=== PATIENT | male | born 1930 | race Caucasian/White ===

== ENCOUNTER 2018-02-05 14:59 | Outpatient (CLI) | payer MEDICARE, BC ==
--- NOTE | 2018-02-05 17:04 | MRI ---
LUMBAR SPINE MRI WITHOUT IV CONTRAST: 02/05/18 HISTORY: 87-year-old male with history of lumbar radiculopathy, right hip pain and right knee pain for 1.5 yea rs. Multiplanar and multisequence MRI examination of the lumbar spine is performed. There is severe gener alized disc desiccation changes and joint space loss with extensive hypertrophic facet arthrosis. Sli ghtly irregularly shaped T2 hyperintense, T1 hypointense 0.8 x 1.3 cm diameter focus in the posterior medial left kidney statistically a small cyst which is incompletely characterized and incompletely s een on this study. Conus medullaris region is unremarkable terminating at L1-L2. T12-L1 level shows no evidence for stenosis. At L1-L2, mild lateral recess stenosis bilaterally. At L2-3, mild bilateral lateral recess stenosis and moderate bilateral foraminal stenosis. At L3-4, mild bilateral recess stenosis and moderate to severe bilateral foraminal stenosis. At L4-5, mild bilateral recess stenosis and moderate to severe bilateral foraminal stenosis. At L5-S1, no significant central canal or lateral recess stenosis with moderate bilateral foraminal s tenosis. There are some mixed end plate changes including some very subtle type I end plate changes at L5-S1, L4-5, L3-4, and L1-2. IMPRESSION: Severe multilevel spondylosis with variable severity multilevel mostly foraminal stenosis with some b ilateral lateral recess stenosis. Some severe mixed end plate changes including some very subtle mult ilevel type I end plate changes. POS: [facility]
== END 2018-02-05 15:00 | disposition home or self-care (01) ==
LOC: TBSIIMAG 14:59
PROVIDERS: ATTEND Orthopaedic Surgery
DX: M48.00 Spinal stenosis, site unspecified (principal); M47.26 Other spondylosis with radiculopathy, lumbar region; M48.061 Spinal stenosis, lumbar region without neurogenic claudication; M99.83 Other biomechanical lesions of lumbar region
CPT/HCPCS: 72148

== ENCOUNTER 2019-03-11 14:39 | Observation (INO) | payer MEDICARE, BC ==
[~2019-03-11 14:39] MED LIST: ISOVUE-370 76%-LOCM 1 ML ONE
--- NOTE | 2019-03-11 14:59 | CT ---
Exam: CT brain PROVIDED CLINICAL HISTORY: Left leg weakness COMPARISON: 06/17/2015 FINDINGS: The ventricular system is normal in size and morphology. No evidence for intracranial hemorrhage or mass effect. The extracranial soft tissues and osseous structures demonstrate no evidence for an acute abnormality. Chronic microvascular ischemic changes are seen involving the cerebral white matte r. IMPRESSION: No evidence for intracranial hemorrhage or mass effect. Findings communicated to emergency department via telephone 2:56 PM 03/11/2019.
[2019-03-11 15:07] LABS: #Eosinphils 0.2 thou/uL (0.0-0.7); #Lymphocytes 1.4 thou/uL (1.20-3.40); #Monocytes 0.7 thou/uL (0.11-0.59); #Neutrophils 3.9 thou/uL (1.40-6.50); %Basophils 0.7 % (0.0-1.0); %Eosinophils 2.9 % (0.0-10.0); %Lymphocytes 23.1 % (21.0-51.0); %Monocytes 10.8 % (0.0-10.0); %Neutrophils 62.5 % (42.0-75.0); Hemoglobin 13.8 g/dL (14.0-18.0); Mean Corpuscular HGB CONC 34.2 g/dL (32.0-36.0); Mean Corpuscular Hemoglobin 34.9 pg (27.0-31.0); Mean Platelet Volume 7.5 fL (7.4-10.4); Platelet Count 158 thou/uL (130-400); RBC Distribution Width 11.9 % (11.5-14.5); Red Blood Cell (RBC) Count 3.96 mill/uL (4.70-6.10); White Blood Cell (WBC) Count 6.2 thou/uL (4.8-10.8)
[2019-03-11 15:13] LABS: PTT 27.9 SEC (22.9-36.1)
[2019-03-11 15:23] LABS: ALT (SGPT) 14 U/L (8-55); AST (SGOT) 21 U/L (5-34); Albumin 4.1 g/dL (3.4-4.8); Alkaline Phosphatase 76 U/L (40-150); Anion Gap 12 mmol/L (10-20); BUN (Urea Nitrogen) 29 mg/dL (8.4-25.7); Bilirubin, Total 0.6 mg/dL (0.2-1.2); CK (CPK) 134 U/L (30-200); Calc. Creatinine Clearance 0 mL/min (70-130); Calcium 9.5 mg/dL (7.8-10.44); Carbon Dioxide 27 mmol/L (23-31); Chloride 104 mmol/L (98-107); Estimated GFR-MDRD 64; Globulin 2.1 g/dL (2.4-3.5); Glucose 101 mg/dL (83-110); Potassium 4.3 mmol/L (3.5-5.1); Protein, Total 6.2 g/dL (5.8-8.1); Sodium 139 mmol/L (136-145)
--- NOTE | 2019-03-11 15:26 | RAD ---
XR Chest 1 View Portable HISTORY: Left leg weakness COMPARISON: None FINDINGS: The heart size is normal. The lungs are well expanded without focal areas of consolidation, pneumothorax or pleural effusions. IMPRESSION: No radiographic evidence of acute cardiopulmonary process.
--- NOTE | 2019-03-11 15:34 | CT ---
CT ANGIOGRAM OF THE HEAD WITH IV CONTRAST AND 3D POSTPROCESSING CT ANGIOGRAM OF THE NECK WITH IV CONTRAST AND 3D POSTPROCESSIN03/11/19 HISTORY: Level II stroke. Left leg weakness. FINDINGS/IMPRESSION: Vascular calcifications are present. There is good flow in the vertebrobasilar and carotid artery sys tems bilaterally. A dominant left vertebral artery is present. No high grade stenosis, major branch occlusion or aneurysm formation is seen. Discussed over the telephone with ER physician, Dr. Sarah Philippe at 3:15 p.m. POS: [facility]
[2019-03-11] MEDS ORDERED: Aspirin 325 MG TAB ONE (17:01)
[2019-03-11] MEDS ORDERED: Ondansetron ODT 4 MG TAB PO PRN (19:35)
[2019-03-11] MEDS ORDERED: Acetaminophen 650 MG Suppository PR PRN (19:35)
[2019-03-11] MEDS ORDERED: Acetaminophen 325 MG TAB PO PRN (19:35)
[2019-03-11] MEDS ORDERED: Ondansetron PF 4 MG/2 ML Vial IVP PRN (19:35)
--- NOTE | 2019-03-11 19:48 | PDOC.HHP ---
Hospitalist HPI - History of Present Illness Difficulty controlling left leg History of Present Illness: Mr. Lange is a very pleasant gentleman who has had a previous CVA who presents after experiencing what he describes as uncontrolloable movement of his left leg. He especially had trouble controlling his foot. He denies any numbness or weakness, states he checked his strength and ROM, also able to bear weight but when walking it would move in directions he was not intending. At one point he kicked himself in the right calf while walking. He states this started while walking his dog this morning at 8:30am. It has gradually improved but he continues to have some difficulty. No left UE abnormalities. Denies any facial numbness/weakness, no speech changes, no vision disturbances. Denies feeling lightheaded or dizzy but does recall feeling "foggy" when it first happened similar to how one would feel when first waking up in the morning. It lasted a few minutes. He was able to drive himself to Dr. Harris's office at 11:30 am and was advised to come to the ER. Per ED RN, he was noted to still have some difficulty walking to the bathroom particularly when changing direction, in which he appears to go towards the left before regaining his balance. Patient very focused on getting home as soon as he is back to normal and is worried for his dog, though his son is staying in his home while he is in the hospital. ED Course: In the ED, patient received aspirin and underwent imaging including CTA head/ neck which showed no acute abnormalities. There were vascular calcifications seen, good flow to vertebrobasilar and carotid artery systems bilaterally. No high-grade stenosis. Chest xray also done which was unremarkable. BUN slightly elevated. Overall renal function appears stable. EKG: NSR, HR 73, complete RBBB, normal ST segments and t waves. Hospitalist ROS - Review of Systems Constitutional: denies: fever, chills, sweats, weakness, malaise, other Eyes: denies: pain, vision change, conjunctivae inflammation, eyelid inflammation, redness, other ENT: denies: ear pain, ear discharge, nose pain, nose discharge, nose congestion , mouth pain, mouth swelling, throat pain, throat swelling, other Respiratory: denies: cough, dry, shortness of breath, hemoptysis, SOB with excertion, pleuritic pain, sputum, wheezing, other Cardiovascular: reports: light headedness (this morning, states he felt more like "foggy" than lightheaded when he first woke up.). denies: chest pain, palpitations, orthopnea, paroxysmal noc. 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 - Past Surgical History Other Surgical History: Nasal cell carcinoma excised - Social History Smoking Status: Former smoker Living Situation: Alone Activity level: independent ambulation Other Social History: Drinks alcohol daily, 1-2 beers or glasses of wine. - Exam General Appearance: NAD, awake alert Eye: PERRL, anicteric sclera ENT: normocephalic atraumatic, no oropharyngeal lesions, moist mucosa Neck: supple, symmetric, no JVD, no thyromegaly, no lymphadenopathy Heart: RRR, no murmur, normal peripheral pulses Respiratory: CTAB, no wheezes, no rales, no ronchi, normal chest expansion, no tachypnea Gastrointestinal: soft, non-tender, non-distended, normal bowel sounds, no palpable masses Extremities: no cyanosis, no clubbing, no edema Skin: normal turgor, no lesions, no rashes Neurological: CN's grossly intact, normal sensation to touch, no weakness, no focal deficits, no new deficit Neurological - other findings: Normal power in bilateral lower extremities Musculoskeletal: normal tone, normal strength, no muscle wasting Psychiatric: normal affect, normal behavior, A&O x 3 Hospitalist Results - Labs Result Diagrams: 03/11/19 14:47 03/11/19 14:47 Lab results: WBC 6.2 thou/uL (4.8-10.8) 03/11/19 14:47 Hgb 13.8 g/dL (14.0-18.0) L 03/11/19 14:47 Hct 40.4 % (42.0-52.0) L 03/11/19 14:47 MCV 102.0 fL (78.0-98.0) H 03/11/19 14:47 Plt Count 158 thou/uL (130-400) 03/11/19 14:47 Neutrophils % 62.5 % (42.0-75.0) 03/11/19 14:47 Sodium 139 mmol/L (136-145) 03/11/19 14:47 Potassium 4.3 mmol/L (3.5-5.1) 03/11/19 14:47 Chloride 104 mmol/L (98-107) 03/11/19 14:47 Carbon Dioxide 27 mmol/L (23-31) 03/11/19 14:47 BUN 29 mg/dL (8.4-25.7) H 03/11/19 14:47 Creatinine 1.09 mg/dL (0.7-1.3) 03/11/19 14:47 Glucose 101 mg/dL (83-110) 03/11/19 14:47 Calcium 9.5 mg/dL (7.8-10.44) 03/11/19 14:47 Total Bilirubin 0.6 mg/dL (0.2-1.2) 03/11/19 14:47 AST 21 U/L (5-34) 03/11/19 14:47 ALT 14 U/L (8-55) 03/11/19 14:47 Alkaline Phosphatase 76 U/L (40-150) 03/11/19 14:47 Creatine Kinase 134 U/L (30-200) 03/11/19 14:47 Troponin I Less than 0.010 ng/mL (< 0.028) 03/11/19 14:47 Serum Total Protein 6.2 g/dL (5.8-8.1) 03/11/19 14:47 Albumin 4.1 g/dL (3.4-4.8) 03/11/19 14:47 - Radiology Interpretation CT scan - head Status: report reviewed by me Hospitalist H&P A/P - Problem (1) CVA (cerebral vascular accident) Code(s): I63.9 - CEREBRAL INFARCTION, UNSPECIFIED Status: Acute Assessment and Plan: Reports uncontrollable movement of left foot, denies numbness or weakness but seems as though having difficulty with ROM due to weakness, rather than uncontrolled abnormal movement. Near resolved. Slight difficulty with balance when turning but denies any dizziness. Will continue CVA work-up. Echo and MRI ordered. Lipid panel in AM. Neuro consult. Orthostatic BPs, in the event he is having lightheadedness that is affecting him when walking. Patient very focused on going home and may be down playing his symptoms. States he plans to leave once he is fully at baseline. Will obtain a UA to assess for any underlying UTI. (2) Dyslipidemia Code(s): E78.5 - HYPERLIPIDEMIA, UNSPECIFIED Status: Acute Assessment and Plan: Will increase statin. (3) BPH (benign prostatic hyperplasia) Code(s): N40.0 - BENIGN PROSTATIC HYPERPLASIA WITHOUT LOWER URINRY TRACT SYMP Status: Acute Assessment and Plan: Hold Flomax for now. Orthostatic BPs as mentioned. - Plan Plan: GI Prophylaxis with Famotidine and DVT prophylaxis with mechanical SCDs. Gentle hydration given recent contrast with CTA. Reports he would like to be DNAR but has never signed papework. Will place consult to palliative care. Surrogate decision makers are his son Abdifatah Lange and daughter Diane Lange.
[2019-03-11] MEDS ORDERED: Atorvastatin Calcium 40 MG TAB PO SCH (21:00)
[2019-03-11 22:31] VITALS: BMI 28.1
[2019-03-11] MEDS: Famotidine/PF 20 mg/2ml Vial SLOW IVP SCH (22:34)
[2019-03-11] MEDS ORDERED: Sodium Chloride 0.9% 1,000 ML IV SCH (22:45)
[2019-03-11] MEDS ORDERED: Lidocaine 2% Viscous Solution 10 ML, Aluminum & Magnesium Hydroxide 30 ML SSW SCH (23:45)
[2019-03-12 04:47] LABS: #Eosinphils 0.2 thou/uL (0.0-0.7); #Lymphocytes 1.2 thou/uL (1.20-3.40); #Monocytes 0.6 thou/uL (0.11-0.59); #Neutrophils 3.8 thou/uL (1.40-6.50); %Basophils 0.5 % (0.0-1.0); %Eosinophils 3.9 % (0.0-10.0); %Lymphocytes 20.2 % (21.0-51.0); %Monocytes 10.9 % (0.0-10.0); %Neutrophils 64.5 % (42.0-75.0); Hemoglobin 12.9 g/dL (14.0-18.0); Mean Corpuscular HGB CONC 33.9 g/dL (32.0-36.0); Mean Corpuscular Hemoglobin 34.7 pg (27.0-31.0); Platelet Count 152 thou/uL (130-400); RBC Distribution Width 11.9 % (11.5-14.5); Red Blood Cell (RBC) Count 3.72 mill/uL (4.70-6.10); White Blood Cell (WBC) Count 5.9 thou/uL (4.8-10.8)
[2019-03-12 05:08] LABS: Anion Gap 11 mmol/L (10-20); BUN (Urea Nitrogen) 28 mg/dL (8.4-25.7); Calc. Creatinine Clearance 61 mL/min (70-130); Calcium 9.1 mg/dL (7.8-10.44); Carbon Dioxide 27 mmol/L (23-31); Cardiac Risk 2.3 (Less than 4.5); Chloride 105 mmol/L (98-107); Cholesterol 94 mg/dl (< 200 Desired); Estimated GFR-MDRD 71; Glucose 94 mg/dL (83-110); HDL Cholesterol 41 mg/dL (>60 Neg Risk); LDL Cholesterol, Calculated 44 mg/dL; Potassium 4.3 mmol/L (3.5-5.1); Sodium 139 mmol/L (136-145); Triglycerides 43 mg/dL (Less than 150)
[2019-03-12] MEDS: Clopidogrel Bisulfate 75 MG TAB PO SCH ×2 (08:41→10:06)
[2019-03-12] MEDS: Famotidine/PF 20 mg/2ml Vial SLOW IVP SCH (08:41)
[2019-03-12] MEDS ORDERED: Losartan 25 MG TAB PO SCH (09:00)
[2019-03-12] MEDS ORDERED: Aspirin 81 mg Enteric Coated Tablet PO SCH (09:00)
[2019-03-12] MEDS ORDERED: Gabapentin 400 MG CAP PO SCH (09:00)
--- NOTE | 2019-03-12 10:12 | CON ---
DATE OF CONSULTATION: 03/12/2019 CONSULTING PHYSICIAN: Hospitalist Service. IMPRESSION: 1. Transient ischemic attack with transient left leg weakness. 2. Hypertension. 3. History of prior stroke. 4. Aspirin failure. 5. Hyperlipidemia. PLAN: 1. Add Plavix. 2. Echocardiogram. 3. MRI of the brain. HISTORY OF PRESENT ILLNESS: Mr. Lange is an 88-year-old gentleman who presented yesterday with complaints of left leg weakness that started that morning and lasted at least 8 hours. There was no associated tingling or weakness of the arm. He denied any slurred speech, headache, nausea, vomiting, vertigo, chest pain, or shortness of breath. His last stroke was in 2015 with transient left-sided weakness as well. He has been on his aspirin and Lipitor prior to this event. He has taken Plavix in the past, but was taken off it a few years ago. PAST MEDICAL HISTORY: As listed above. ALLERGIES: NONE. SOCIAL HISTORY: No tobacco use. FAMILY HISTORY: Noncontributory. MEDICATION LIST: Reviewed. REVIEW OF SYSTEMS: Ten-system review of systems is otherwise negative. PHYSICAL EXAMINATION: GENERAL: He is a healthy-appearing elderly man, in no acute distress. VITAL SIGNS: Blood pressure 147/73, pulse 78, respirations 16, and temperature 98.3. HEENT: Pupils are equal and reactive. Conjunctivae clear. Oropharynx clear. Cranium, normocephalic and atraumatic. NECK: Supple. No lymphadenopathy. EXTREMITIES: No cyanosis, clubbing, or edema. NEUROLOGIC: He is alert and appropriate. His speech is fluent and clear. Cranial nerves 2 through 12 are intact. Motor exam showed equal strength. No tremor. Dysmetria is present. He can stand and walk independently. Sensation is intact to touch. LABORATORY STUDIES: CBC, coags, and chemistry panel were unremarkable. His cholesterol ratio is 2.3. CT angiogram and CT of the brain were unremarkable. SUMMARY: This is an elderly man with transient left leg weakness consistent with a TIA. I agree with adding Plavix, and the workup you have undertaken to be available if there are any further questions. Job ID: [id number]
--- NOTE | 2019-03-12 11:32 | MRI ---
MRI BRAIN WITHOUT CONTRAST: HISTORY: Transient ischemic attack. COMPARISON: CT brain 03/11/2019. FINDINGS: On the diffusion weighted imaging sequence, there are no abnormal foci of diffusion restriction. Thi s is confirmed on the ADC map. Old punctate left cerebellar infarction. Moderate atrophy. No midline shift. No mass effect. Ex vacuo dilatation of the ventricular systems. Prominent periva scular spaces. Moderate periventricular and deep white mater chronic microangiopathic change. On the susceptibility weighted imaging sequence, no abnormal foci of hemorrhage. Corpus callosum is normal. Marrow signal of the clivus is maintained. IMPRESSION: 1. No acute hemorrhage or infarct. 2. Moderate atrophy and chronic microvascular ischemic changes. POS: HOME
--- NOTE | 2019-03-12 11:56 | MRI ---
MRI LUMBAR SPINE WITHOUT CONTRAST: HISTORY: Chronic back pain. Lower extremity weakness. COMPARISON: MRI 02/05/2018. FINDINGS: No hydronephrosis. The aortic contour is nonaneurysmal where visualized. T2 hyperintense cyst poste rior cortex interpolar right kidney. No marrow infiltrative process. Abnormal narrowing of the interspinous space from L1-L5 with cortica l sclerosis and subcortical reactive marrow change. 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 The conus medullaris terminates near the inferior end plate of L1. Levels are as follows: L1-2: Mild facet arthrosis. Circumferential disk-osteophyte complex. Moderate bilateral neural for aminal narrowing. Mild ligamentum flavum thickening. Spinal canal measures approximately 1 cm. L2-3: Moderate degenerative disk space height loss and circumferential disk-osteophyte complex. Mod erate facet arthropathy and ligamentum flavum hypertrophy. Moderate bilateral neural foraminal narro wing. Mild effacement of the ventral CSF space of the spinal canal is not significantly narrowed. L3-4: Moderate facet arthropathy. Circumferential disk-osteophyte complex greatest in the subforami nal zones. There is moderate to severe bilateral neural foraminal narrowing with abutment of both ex iting and traversing nerve roots. No significant spinal canal narrowing. L4-5: Moderate degenerative disk space height loss. Moderate to severe left and moderate right face t arthropathy. Hypertrophic facet changes and subforaminal disk-osteophyte complexes cause moderate to severe neural foraminal narrowing with abutment of both the exiting and traversing nerve roots. L5-S1: Advanced degenerative disk space height loss. Moderate hypertrophic facet changes. Moderate bilateral neural foraminal narrowing. IMPRESSION: 1. Multilevel spondylosis with neural foraminal narrowing. 2. 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 POS: HOME
[2019-03-12 15:36] VITALS: BP 157/68; TEMP 98.3
--- NOTE | 2019-03-12 22:51 | DIS ---
DATE OF ADMISSION: 03/11/2019 DATE OF DISCHARGE: 03/12/2019 PRIMARY CARE PROVIDER: Dr. Solomon Harris. DISCHARGE DIAGNOSES: 1. Transient ischemic attack. 2. Multilevel lumbar spondylosis with neural foraminal narrowing. CONDITION OF PATIENT AT THE TIME OF DISCHARGE: Stable. I assessed Mr. Lange on the day of discharge. He denies any chest pain or shortness of breath. He denies any lower extremity weakness. Vital signs are stable. S1 and S2 are heard, regular. Lungs are clear to auscultation bilaterally. Neurologic examination was nonfocal. CONSULTATIONS DURING THIS HOSPITALIZATION: Neurology, Dr. Go. FOLLOWUP APPOINTMENTS: The patient is advised to follow up with primary care provider in 3 to 5 days' time. He is also advised to obtain 2D echocardiogram results at that time. He is also advised to discuss use of antiplatelet agents at that time. HOSPITAL COURSE: Mr. Lange is a pleasant 88-year-old gentleman, who was admitted to [facility] for uncontrollable movement of left foot. Please refer to Ms. Chen's history and physical note dated March 11, 2019, for further details. He was seen by Neurology Service. Neurology Service felt that this was a transient ischemic attack. He was advised to be started on Plavix. MRI of the brain did not show any acute hemorrhage or infarct. He had moderate atrophy and chronic microvascular ischemic changes. He also had 2D echocardiogram done, report pending at the time of this dictation. He is advised to follow up with his primary care provider for results of 2D echocardiogram. 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 He is advised to follow up with his entry specialist as outpatient. He was seen by Physical Therapy Service. He was advised home health with physical therapy or outpatient physical therapy. The patient's family reports that they will make a decision in 24 hours after seeing how he does and follow up with primary care provider for the same. The patient has been advised to start Plavix. Family will decide on this after discussion with primary care provider. On the day of discharge, Mr. Lange has white count of 5900, hemoglobin 12.9, platelet count 152,000, unremarkable chem-7, triglycerides 43, cholesterol 94, and LDL cholesterol 44. DISCHARGE MEDICATIONS: No change was made to his pre-admission home medications, which include, 1. Aspirin 162 mg daily. 2. Lipitor 20 mg at bedtime. 3. Vitamin D 1000 units daily. 4. Gabapentin 400 mg 2 times a day. 5. Cozaar 50 mg daily. 6. Magnesium 200 mg daily. 7. Meloxicam 7.5 mg at bedtime. 8. Sertraline 100 mg daily. 9. Flomax 0.4 mg 2 times a day. 10. Ambien 5 mg at bedtime as needed. Many thanks for allowing me to participate in your patient's care. Please feel free to contact me with any questions or concerns. DISCHARGE DESTINATION: Home. Job ID: [id number]
--- NOTE | 2019-03-19 13:12 | EKG ---
Test Reason : Blood Pressure : / mmHG Vent. Rate : 073 BPM Atrial Rate : 073 BPM P-R Int : 176 ms QRS Dur : 118 ms QT Int : 444 ms P-R-T Axes : 066 -69 010 degrees QTc Int : 489 ms Normal sinus rhythm Right bundle branch block Left anterior fascicular block Bifascicular block Abnormal ECG Confirmed by CHERYL GODINEZ ([id number]), assistant production editor ERIC HODGSON ([id number]) on 03/19/2019 1:12:05 PM Referred By: Confirmed By:CHERYL GODINEZ
== END 2019-03-12 17:12 | disposition home or self-care (01) ==
LOC: ERS 14:39 → 2SE 21:50
PROVIDERS: ADMIT Internal Medicine; ATTEND Internal Medicine
DX: G45.9 Transient cerebral ischemic attack, unspecified (principal); M47.816 Spondylosis without myelopathy or radiculopathy, lumbar region; M48.061 Spinal stenosis, lumbar region without neurogenic claudication; M19.90 Unspecified osteoarthritis, unspecified site; N40.0 Benign prostatic hyperplasia without lower urinary tract symptoms; E78.5 Hyperlipidemia, unspecified; I10 Essential (primary) hypertension; Z86.73 Personal history of transient ischemic attack (TIA), and cerebral infarction without residual deficits; Z87.891 Personal history of nicotine dependence; Z79.1 Long term (current) use of non-steroidal anti-inflammatories (NSAID); Z79.82 Long term (current) use of aspirin; Z79.899 Other long term (current) drug therapy
CPT/HCPCS: 70450; 70496; 70498; 70551; 71045; 72148; 80048; 80053; 80061; 82550; 82962; 84484; 85025 ×2; 85610; 85730; 93005; 93306; 96374; 96376; 97116; 97139 ×2; 97530; 99285; G0378 ×3; 36415; 36416; Q9966; S0028

== ENCOUNTER 2019-06-25 00:09 | Emergency (ER) | payer MEDICARE, BC ==
[2019-06-25] MEDS ORDERED: Ondansetron PF 4 MG/2 ML Vial ONE (00:22)
[2019-06-25 01:01] LABS: #Basophils 0.1 thou/uL (0.0-0.2); #Eosinphils 0.1 thou/uL (0.0-0.7); #Lymphocytes 0.3 thou/uL (1.20-3.40); #Monocytes 0.3 thou/uL (0.11-0.59); %Basophils 0.5 % (0.0-1.0); %Eosinophils 0.5 % (0.0-10.0); %Lymphocytes 2.6 % (21.0-51.0); %Monocytes 2.6 % (0.0-10.0); %Neutrophils 93.7 % (42.0-75.0); Hemoglobin 9.4 g/dL (14.0-18.0); Mean Corpuscular HGB CONC 33.3 g/dL (32.0-36.0); Mean Corpuscular Hemoglobin 30.5 pg (27.0-31.0); Mean Corpuscular Volume 91.6 fL (78.0-98.0); Mean Platelet Volume 7.7 fL (7.4-10.4); Platelet Count 260 thou/uL (130-400); RBC Distribution Width 14.6 % (11.5-14.5); Red Blood Cell (RBC) Count 3.07 mill/uL (4.70-6.10); White Blood Cell (WBC) Count 10.7 thou/uL (4.8-10.8)
[2019-06-25 01:02] LABS: Bilirubin Negative (Negative); Blood, Urine Negative (Negative); Clarity Clear (Clear); Glucose, Urine (Dipstick) Normal (Negative); Leukocyte Negative Leu/uL (Negative); Nitrite Negative (Negative); Protein, Urine (Dipstick) Negative (Neg-Trace); Urobilinogen Normal mg/dL (Less than 2)
[2019-06-25 01:13] LABS: ALT (SGPT) 11 U/L (8-55); AST (SGOT) 16 U/L (5-34); Albumin 4.5 g/dL (3.4-4.8); Alkaline Phosphatase 66 U/L (40-110); Anion Gap 14 mmol/L (10-20); BUN (Urea Nitrogen) 20 mg/dL (8.4-25.7); Bilirubin, Total 0.6 mg/dL (0.2-1.2); Calc. Creatinine Clearance 0 mL/min (70-130); Calcium 9.2 mg/dL (7.8-10.44); Carbon Dioxide 26 mmol/L (23-31); Chloride 102 mmol/L (98-107); Estimated GFR-MDRD 62; Globulin 2.8 g/dL (2.4-3.5); Glucose 153 mg/dL (83-110); Lipase 43 U/L (8-78); Potassium 4.2 mmol/L (3.5-5.1); Protein, Total 7.3 g/dL (5.8-8.1); Sodium 138 mmol/L (136-145)
[2019-06-25] MEDS ORDERED: Lidocaine Viscous Sol 2% 15 ml UD Cup ONE (01:56)
[2019-06-25] MEDS ORDERED: Mag-Al 1200 mg/1200 mg/30 ML UDCUP ONE (01:56)
--- NOTE | 2019-06-28 14:07 | EKG ---
Test Reason : Blood Pressure : / mmHG Vent. Rate : 094 BPM Atrial Rate : 094 BPM P-R Int : 200 ms QRS Dur : 128 ms QT Int : 404 ms P-R-T Axes : 009 127 045 degrees QTc Int : 505 ms Normal sinus rhythm Right bundle branch block Left posterior fascicular block Bifascicular block Abnormal ECG Confirmed by CHERYL GODINEZ ([id number]), non linear editor ERIC HODGSON ([id number]) on 06/28/2019 2:07:02 PM Referred By: Confirmed By:CHERYL GODINEZ
== END 2019-06-25 02:33 | disposition home or self-care (01) ==
LOC: ERS 00:09
DX: R11.2 Nausea with vomiting, unspecified (principal); M19.90 Unspecified osteoarthritis, unspecified site; Z86.73 Personal history of transient ischemic attack (TIA), and cerebral infarction without residual deficits
CPT/HCPCS: 80053; 81003; 83690; 84484; 85025; 93005; 96361; 96374; J2405

== ENCOUNTER 2019-09-01 08:01 | Outpatient (CLI) | payer MEDICARE, BC ==
[2019-09-01 13:44] LABS: #Eosinphils 0.1 thou/uL (0.0-0.7); #Lymphocytes 1.6 thou/uL (1.20-3.40); #Monocytes 0.8 thou/uL (0.11-0.59); #Neutrophils 4.1 thou/uL (1.40-6.50); %Basophils 0.5 % (0.0-1.0); %Eosinophils 2.2 % (0.0-10.0); %Lymphocytes 23.5 % (21.0-51.0); %Monocytes 12.2 % (0.0-10.0); %Neutrophils 61.5 % (42.0-75.0); Hemoglobin 13.5 g/dL (14.0-18.0); Mean Corpuscular HGB CONC 31.3 g/dL (32.0-36.0); Mean Corpuscular Hemoglobin 29.6 pg (27.0-31.0); Mean Corpuscular Volume 94.7 fL (78.0-98.0); Mean Platelet Volume 10.3 fL (7.4-10.4); Platelet Count 187 thou/uL (130-400); RBC Distribution Width 20.9 % (11.5-14.5); Red Blood Cell (RBC) Count 4.57 mill/uL (4.70-6.10); White Blood Cell (WBC) Count 6.6 thou/uL (4.8-10.8)
[2019-09-01 13:46] LABS: Bacteria/HPF None Seen HPF (None Seen); Bilirubin Negative (Negative); Blood, Urine Negative (Negative); Clarity Clear (Clear); Glucose, Urine (Dipstick) Normal (Negative); Leukocyte Negative Leu/uL (Negative); Nitrite Negative (Negative); Protein, Urine (Dipstick) Negative (Neg-Trace); RBC/HPF 0-3 HPF (0-3); Squamous Epithelial None Seen HPF (0-3); Urobilinogen Normal mg/dL (Less than 2); WBC/HPF 0-3 HPF (0-3)
[2019-09-01 13:49] LABS: INR-International Normal Ratio 0.9; Prothrombin Time 12.5 SEC (12.0-14.7)
[2019-09-01 14:15] LABS: Anion Gap 12 mmol/L (10-20); BUN (Urea Nitrogen) 21 mg/dL (8.4-25.7); Calc. Creatinine Clearance 0 mL/min (70-130); Calcium 9.3 mg/dL (7.8-10.44); Carbon Dioxide 28 mmol/L (23-31); Chloride 102 mmol/L (98-107); Estimated GFR-MDRD 69; Glucose 94 mg/dL (83-110); Potassium 4.1 mmol/L (3.5-5.1); Sodium 138 mmol/L (136-145)
--- NOTE | 2019-09-01 16:57 | EKG ---
Test Reason : Blood Pressure : / mmHG Vent. Rate : 073 BPM Atrial Rate : 073 BPM P-R Int : 178 ms QRS Dur : 136 ms QT Int : 418 ms P-R-T Axes : 049 -81 000 degrees QTc Int : 460 ms Normal sinus rhythm Right bundle branch block Left anterior fascicular block Bifascicular block Abnormal ECG When compared with ECG of 25-JUN-2019 00:26, Left anterior fascicular block is now Present Left posterior fascicular block is no longer Present Inverted T waves have replaced nonspecific T wave abnormality in Inferior leads Confirmed by DR. Saturnino MARTINEZ ([id number]) on 09/01/2019 4:57:25 PM Referred By: JAVED Confirmed By:DR. Saturnino MARTINEZ
== END 2019-09-01 08:02 | disposition home or self-care (01) ==
LOC: LABBT 08:01
PROVIDERS: ATTEND Orthopaedic Surgery
DX: Z01.818 Encounter for other preprocedural examination (principal); M17.11 Unilateral primary osteoarthritis, right knee
CPT/HCPCS: 80048; 81001; 85025; 85610; 87081; 93005; 93010

== ENCOUNTER 2019-09-01 08:45 | Inpatient (IN) | payer MEDICARE, BC ==
[2019-09-01 12:34] VITALS: BMI 28.7
[2019-09-06] MEDS ORDERED: Tranexamic Acid 1,000 MG/10 ML VIAL ONE (05:53)
[2019-09-06] MEDS ORDERED: Vancomycin 1.5 GRAM/300 ML BAG 1.5 GM/300 ML BAG ONE (05:53)
[2019-09-06] MEDS ORDERED: Sodium Chloride 0.9% 100 ML ONE (05:54)
[2019-09-06] MEDS ORDERED: Fentanyl 100 MCG/2 ML VIAL ONE ×5 (06:16→09:29)
[2019-09-06] MEDS ORDERED: Midazolam HCl 2 mg/2 ml Vial ONE ×2 (06:16→06:45)
[2019-09-06] MEDS ORDERED: Lidocaine 1% (PF) 30 ML VIAL ONE (06:45)
[2019-09-06] MEDS ORDERED: Ondansetron PF 4 MG/2 ML Vial IVP PRN ×2 (07:06→07:29)
[2019-09-06] MEDS ORDERED: Promethazine HCl 25 MG/ML VIAL IM PRN ×2 (07:06→07:29)
[2019-09-06] MEDS ORDERED: Acetaminophen 325 MG TAB PO PRN (07:06)
[2019-09-06] MEDS ORDERED: Zolpidem Tartrate 5 MG TAB PO PRN ×3 (07:06→07:29)
[2019-09-06] MEDS ORDERED: diphenhydrAMINE 25 MG CAP PO PRN (07:06)
[2019-09-06] MEDS ORDERED: Non-Formulary Item 1 EACH (Loratadine [Claritin] 10 MG) PO PRN (07:08)
[2019-09-06] MEDS ORDERED: Acetaminophen 500 MG TAB PO PRN (07:08)
[2019-09-06] MEDS ORDERED: traMADol HCl 50 MG TAB PO PRN ×2 (07:08→07:29)
[2019-09-06] MEDS ORDERED: Ropivacaine HCl/PF 250 ML in Premix Bag 1 BAG NERVE BLCK SCH (07:29)
[2019-09-06] MEDS ORDERED: Fentanyl 100 MCG/2 ML VIAL IV PRN (07:30)
[2019-09-06] MEDS ORDERED: Loratadine 10 MG TAB PO PRN (07:33)
[2019-09-06] MEDS ORDERED: Famotidine 20 MG TAB PO PRN (09:00)
[2019-09-06] MEDS ORDERED: CHONDROITIN SULFATE A SODIUM 1200 MG PO SCH (09:00)
[2019-09-06] MEDS ORDERED: Non-Formulary Item 1 EACH (Ubidecarenone [Coq-10] 200 MG) PO SCH (09:00)
[2019-09-06] MEDS ORDERED: [UNRECOGNIZED DRUG - OTHER] PO SCH (09:00)
[2019-09-06] MEDS ORDERED: Morphine 4 MG/ML VIAL ONE (09:14)
--- NOTE | 2019-09-06 09:20 | OP ---
DATE OF PROCEDURE: 09/06/2019 This is dictated by Kenny Smith PA-C for Ron Prieto MD. 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 PROCEDURE: Cemented cruciate sparing computer-assisted navigated right total knee arthroplasty. SURGEON: Ron Prieto MD COATER [employer]RAKE LININGS: Kenny Smith PA-C ANESTHESIA: General via LMA augmented with lateral sciatic block and indwelling adductor canal block. COMPONENTS USED: [employer] Triathlon size 4 cemented cruciate sparing primary femoral component with a size 5 cemented primary tibial base plate, 9-mm polyethylene fixed bearing insert, and A32 patella button. FINDINGS: End-stage severe degenerative tricompartmental disease, [id number] arthrosis, periarticular osteophyte formation, large serous effusion, and hypertrophic changes of the synovium and changes consistent with chronic degenerative genu valgum. INPUT: 800 mL crystalloid. OUTPUT: None measured. No Izaguirre placed. DRAINS: None. SPECIMENS: None. COMPLICATIONS: None. COUNTS: Correct. INDICATION FOR SURGERY: Sean is an 89-year-old male, who has had progressive right knee pain and problem with standing and walking for the last 5 to 7 years. He has failed conservative management and elected to proceed with total knee arthroplasty as definitive treatment of his pain. PROCEDURE IN DETAIL: After informed consent was obtained in the preoperative holding area, the patient was taken to the operative suite where general anesthesia was induced. Once adequate level of general anesthesia was obtained, the patient was positioned and a well-padded tourniquet was placed around the right proximal thigh. The right lower extremity was then prepped and draped in the usual sterile fashion. Prior to exsanguination, a time-out was called and all members of the surgical team agreed upon site, surgeon, and patient. The extremity was then exsanguinated and the tourniquet was raised. A midline longitudinal incision was then made directly over the patella extending 2 fingerbreadths above the superior pole of the patella and 2 fingerbreadths inferior to the inferior patellar pole of the patella. Deeper subcutaneous layers were dissected sharply and local bleeding was controlled with Bovie electrocautery. A quad tendon longitudinal split was then made sharply and a median parapatellar arthrotomy was carried out both sharp and with Bovie electrocautery, carried down to 1 fingerbreadth medial to the tibial tubercle. The knee was then placed into flexion and the patella was everted nicely, and a copious fat pad ectomy was performed, allowing for greater exposure of the tibia. The computer-assisted distal femoral fiducial was then placed and pinned firmly, and the distal femoral cutting guide was pinned firmly into place. The oscillating saw was then used to remove the appropriate amount of bone. The 4-in-1 cutting block was then placed on the distal femur and the oscillating saw was used to remove the appropriate amount of bone off the anterior, posterior, and chamfer cuts. After completion of bone cuts, the anterior cruciate ligament was resected sharply and the posterior cruciate ligament retractor was placed and the tibia was subluxed for better exposure. Partial meniscectomies were carried out, and the tibial computer-assisted fiducial was pinned, and the cutting guide was placed. Oscillating saw was then used to remove the bone, with Hohmann retractors used to take care and protect the collateral ligaments. After the tibial resection was performed, a laminar digital commentator was placed in between the freshened bone cuts. The knee placed at 90 degrees and further bilateral meniscectomies were carried out, and the curved osteotome and curettage were used to remove any excess bone spurs in the posterior compartment. The trial femoral component, tibial baseplate were placed with the appropriate polyethylene trial insert with an appropriate polyethylene spacer and patellar button. The knee was taken through full range of motion with flexion and extension from 0 to 90 degrees and patellar broach squarely in the trochlea without any squinting or subluxation noted. The knee was also stable to varus and valgus stressing at 0, 15, 45, and 90 degrees of flexion. The drawer was negative. All trial components were then removed and the keel punch was used to provide the appropriate defect in the tibia with a mallet. The freshened bone cuts were copiously irrigated with pulsatile lavage of about 1.5 L to remove all excess debris. The freshened bone cuts were then dried with suction and lap sponge. The knee was placed in flexion and retractors were placed to provide access to all bone cuts. Tobramycin-impregnated methyl methacrylate cement was then placed on the freshened bone cuts and implants which were malleted firmly into place. Curettage and Emmet elevators were used to remove any excess bone cement. The knee was placed into full extension and the patellar button was placed under compression, and the cement was allowed to cure. Once completed, the components were again taken through full range of motion and copious irrigation of the knee was carried out with another liter of normal saline. All components were inspected fully with full range of motion and varus and valgus stressing. There was no laxity noted and full extension was observed clinically. Primary closure was accomplished with #2 interrupted Vicryl stitch of the arthrotomy defect. This was oversewn with a #2 running Quill barbed stitch. The subcutaneous layer was then closed with a running 0 barbed Monocryl stitch and skin closure accomplished with a running subcuticular 3-0 Monocryl barbed Quill stitch and augmented with cement on the skin. Tourniquet was lowered. Good spontaneous return of distal pulses was noted clinically and a sterile dressing was applied to the incision. The procedure was terminated without any complications. The patient was awakened in the operative suite and taken to the recovery room in stable condition. Job ID: [id number]
[2019-09-06] MEDS ORDERED: Morphine 2 MG/ML SYRINGE ONE (09:23)
[2019-09-06] MEDS ORDERED: Non-Formulary Medication 1 EACH PO PRN (09:28)
[2019-09-06] MEDS ORDERED: PACU-Morphine 4MG/ML VIAL SLOW IVP PRN (09:28)
[2019-09-06] MEDS ORDERED: Ondansetron HCl/PF 4 MG/2 ML Vial IVP PRN (09:28)
[2019-09-06] MEDS ORDERED: Promethazine HCl 25 MG/ML VIAL IM/IV PRN (09:28)
[2019-09-06] MEDS ORDERED: Morphine Sulfate 2 MG/ML SYRINGE SLOW IVP PRN (09:28)
--- NOTE | 2019-09-06 09:30 | RAD ---
2 VIEWS RIGHT KNEE: Date: 09/06/2019 HISTORY: Evaluate knee following arthroplasty. FINDINGS: There is a total knee arthroplasty present with no evidence for hardware failure, acute fracture, or evidence of dislocation. There is gas and fluid within the right knee joint and within the soft tissu es anteriorly consistent with recent surgery. IMPRESSION: Radiographic evidence of recent right total knee arthroplasty. POS: [facility]
[2019-09-06] MEDS ORDERED: Bupivacaine HCl 0.5%/Epinephrine 1:200,000/PF 30 ml Vial ONE (10:56)
[2019-09-06] MEDS ORDERED: Lidocaine 1% PF 5 ML VIAL ONE (10:56)
[2019-09-06] MEDS ORDERED: PHENYLEPHRINE-NS 100 MCG/ML 10 ML SYRINGE ONE (10:56)
[2019-09-06] MEDS ORDERED: Ropivacaine 0.2% HCl/PF (40 MG/20 ML VIAL) ONE (10:56)
[2019-09-06] MEDS ORDERED: EPHEDRINE 25 MG/5 ML SYRINGE ONE (10:56)
[2019-09-06] MEDS ORDERED: Ondansetron PF 4 MG/2 ML Vial ONE (10:56)
[2019-09-06] MEDS ORDERED: Dexamethasone 20 MG/5 ML VIAL ONE (10:56)
[2019-09-06] MEDS ORDERED: PROPOFOL 200 MG/20 ML VIAL ONE (10:56)
[2019-09-06] MEDS: Sodium Chloride 0.9% 1,000 ML IV SCH ×2 (11:31→13:41)
[2019-09-06] MEDS ORDERED: Guaifenesin DM 100-10/5 ML UDCUP PO PRN (12:09)
--- NOTE | 2019-09-06 13:18 | CON ---
DATE OF CONSULTATION: PRIMARY CARE PHYSICIAN: Dr. Solomon Harris. PRIMARY TEAM: Orthopedics, Dr. Prieto. REASON FOR CONSULTATION: Medical management. HISTORY OF PRESENT ILLNESS: This is an 89-year-old male with a history of mild hypertension, small lacunar stroke, and osteoarthritis, who presented for an elective right total knee arthroplasty, which he had done earlier today. The patient has been recovering well in his room. He has a little bit of pain around his kneecap, but otherwise is without complaints. REVIEW OF SYSTEMS: CONSTITUTIONAL: No fevers. No chills. EYES: No double vision or blurred vision. He does have some chronic macular degeneration. No recent changes. ENT: The patient reports some sinus congestion that is common at this time of the year from [place]. No sore throat. CARDIOVASCULAR: No chest pain. No palpitations or racing heart. PULMONARY: No coughing, wheezing, or shortness of breath. GASTROINTESTINAL: No abdominal pain. No nausea or vomiting. No diarrhea or constipation. GENITOURINARY: No dysuria or hematuria. He has had problems with urinary urgency in the past, but is controlled with his Flomax. MUSCULOSKELETAL: He has chronic right knee pain and also some low back pain with ambulation since his knees got real bad. SKIN: No new rashes or other lesions. He does have some chronic sun damaged areas to his forehead and face, that he sees a glazier apprentice for, and has a rash to his right ankle, that the glazier apprentice put him on some cream for. NEUROLOGIC: No numbness, tingling, or focal weakness. PAST MEDICAL HISTORY: 1. Mild hypertension, currently off medications for last 2 to 3 months per his primary care doctor. Blood pressures usually ran in the 140s to 150s. 2. Previous small lacunar stroke in 2015. 3. Hyperlipidemia, controlled with atorvastatin. He gets muscle cramps from atorvastatin if unless he takes CoQ10 as well. 4. Macular degeneration. 5. Multiple basal-cell carcinoma removals. 6. Hearing loss. 7. Gastroesophageal reflux disease. 8. Benign prostatic hyperplasia with some previous chronic prostatitis. PAST SURGICAL HISTORY: 1. Nasal surgery. 2. Basal-cell carcinomas removed from nose and face. 3. Trigger finger release. 4. Left carpal tunnel syndrome surgery. 5. Recent normal cardiac PET scan after an abnormal EKG. SOCIAL HISTORY: The patient quit smoking back in the 1960s after the surgeon general said it caused health problems. He drinks between 1 to 3 alcoholic drinks per day, either beer, wine, or occasionally whiskey. No illicit drugs. He is a . He is a full code and states his medical decision makers would be his 2 children, Abdifatah Lange and Diane Lange. FAMILY HISTORY: Mother had diabetes and heart problems from a congenital atrial septal defect, that was repaired when she was older. Father of old age. He has had siblings, who had heart attacks and diabetes, and his sister of ovarian cancer. ALLERGIES: OYSTERS CAUSE NAUSEA AND VOMITING. HOME MEDICATIONS: 1. Glucosamine 1500 mg daily. 2. Acetaminophen as needed. 3. Atorvastatin 20 mg at night. 4. Calcium carbonate 1200 mg daily. 5. Fiber 625 mg daily. 6. Vitamin D of 2000 units daily. 7. OptiFlex-C 1200 mg daily. 8. Docusate sodium 100 mg as needed. 9. Gabapentin 400 mg twice a day. 10. Loratadine 10 mg daily as needed for congestion. 11. Ocuvite Lutein 25/5 mg soft gels taken daily. 12. Ranitidine 75 mg daily as needed. 13. Tamsulosin 0.4 mg twice a day. 14. Tramadol 50 mg as needed. 15. Triamcinolone cream to ankle twice a day. 16. Coenzyme Q10 of 200 mg twice a day. 17. ICaps AREDS2 soft gels 1 capsule twice a day. 18. Ambien 5 mg at night as needed. PHYSICAL EXAMINATION: VITAL SIGNS: Blood pressure 144/81, pulse 85, respirations 20, O2 saturation 98 % on room air, temperature 97.8. GENERAL: This is a well-developed, well-nourished, white male, in no acute distress. HEENT: Pupils are equally round and reactive to light. Oropharynx is clear without lesions, erythema, or exudate. NECK: Supple. No lymphadenopathy. No thyroid nodules or enlargement. No JVD. HEART: Regular rate and rhythm. No murmurs, rubs, or gallops. LUNGS: Clear to auscultation bilaterally. No wheezes, crackles, or rhonchi. ABDOMEN: Soft. Nontender to palpation. Normoactive bowel sounds. No hepatosplenomegaly or other masses. EXTREMITIES: The patient has postoperative surgical dressing on the right knee. It is clean, dry, and intact. No clubbing, cyanosis, or edema. SKIN: The patient has some scattered actinic keratoses across his forehead. No other lesions noted. NEUROLOGIC: Intact strength and sensation in all extremities. No facial droop. PSYCHIATRIC: Alert and oriented x3. Normal mood and affect. LABORATORY DATA: CBC is grossly within normal limits. Basic metabolic panel without significant abnormalities. Urinalysis is negative for infection. ASSESSMENT: 1. Osteoarthritis of the knee, status post total knee arthroplasty, being managed by Dr. Prieto. 2. Mild hypertension, not currently on any antihypertensives. We will keep a close eye on his vital signs. Should he spike his blood pressures up during the hospitalization, we can restart him on a very low-dose HONEY inhibitor. 3. Hyperlipidemia. Resume the patient's statin. 4. Gastroesophageal reflux disease. We will continue the patient's H2 antonieta. 5. Sinus allergies. We will continue the patient's Claritin. 6. Benign prostatic hyperplasia. We will continue the patient's Flomax. 7. Deep venous thrombosis prophylaxis as per Surgery. He is on sequential compression devices. CODE STATUS: The patient is a full code. Should he be incapacitated, his children, Abdifatah and Diane Lange will be his medical decision makers. Job ID: [id number] [facility]
[2019-09-06] MEDS: CEFAZOLIN 2 GM in Premix Bag 1 BAG IVPB SCH ×2 (13:33→22:12)
[2019-09-06] MEDS: Aspirin 81 mg Enteric Coated Tablet PO SCH ×2 (13:38→21:44)
[2019-09-06] MEDS: Calcium Carbonate 600 MG TAB PO SCH (13:38)
[2019-09-06] MEDS: Vit A,C & E/Lutein/Minerals Tablet PO SCH ×4 (13:39→22:13)
[2019-09-06] MEDS: Calcium Polycarbophil 625 MG TAB PO SCH (13:39)
[2019-09-06] MEDS: Tamsulosin HCl 0.4 MG CAP PO SCH ×2 (13:39→21:45)
[2019-09-06] MEDS: Gabapentin 400 MG CAP PO SCH ×2 (13:39→21:45)
[2019-09-06] MEDS: Ubidecarenone 50 MG CAP PO SCH ×2 (13:39→21:44)
[2019-09-06] MEDS: HYDROcodone/Acetaminophen 10/325 mg Tablet PO PRN ×2 (14:27→22:09)
[2019-09-06] MEDS: traMADol HCl 50 MG TAB PO PRN ×2 (17:08→23:18)
[2019-09-06] MEDS: Atorvastatin Calcium 20 MG TAB PO SCH (21:45)
[2019-09-07] MEDS: HYDROcodone/Acetaminophen 10/325 mg Tablet PO PRN ×5 (03:00→20:58)
[2019-09-07] MEDS: Sodium Chloride 0.9% 1,000 ML IV SCH ×3 (05:12→23:23)
[2019-09-07 05:49] LABS: Hemoglobin 11.7 g/dL (14.0-18.0); Mean Corpuscular HGB CONC 31.6 g/dL (32.0-36.0); Mean Corpuscular Hemoglobin 29.8 pg (27.0-31.0); Mean Corpuscular Volume 94.2 fL (78.0-98.0); Mean Platelet Volume 10.7 fL (7.4-10.4); Platelet Count 144 thou/uL (130-400); Red Blood Cell (RBC) Count 3.91 mill/uL (4.70-6.10); White Blood Cell (WBC) Count 10.4 thou/uL (4.8-10.8)
[2019-09-07] MEDS: Ubidecarenone 50 MG CAP PO SCH ×2 (08:55→21:00)
[2019-09-07] MEDS: Tamsulosin HCl 0.4 MG CAP PO SCH ×2 (08:57→21:00)
[2019-09-07] MEDS: Senokot S 8.6-50 MG TAB PO SCH ×2 (08:57→21:00)
[2019-09-07] MEDS: Ferrous Gluconate 324 MG TAB PO SCH ×2 (08:57→21:00)
[2019-09-07] MEDS: Aspirin 81 mg Enteric Coated Tablet PO SCH ×2 (08:57→20:59)
[2019-09-07] MEDS: Gabapentin 400 MG CAP PO SCH ×2 (08:57→20:59)
[2019-09-07] MEDS: Multivitamin W/ Minerals 1 TAB PO SCH (08:58)
[2019-09-07] MEDS: Calcium Carbonate 600 MG TAB PO SCH (08:58)
[2019-09-07] MEDS: Vit A,C & E/Lutein/Minerals Tablet PO SCH ×3 (08:59→21:02)
[2019-09-07] MEDS: Calcium Polycarbophil 625 MG TAB PO SCH (08:59)
--- NOTE | 2019-09-07 13:34 | PRG ---
DATE OF SERVICE: 09/07/2019 SUBJECTIVE: Sean is an 89-year-old male, postop day 1 from right total knee arthroplasty. He is doing relatively well and he is comfortable this morning. He has no complaints. OBJECTIVE: VITAL SIGNS: Temperature 99.1, pulse 85, respiratory rate 14, blood pressure 101/54. GENERAL: He is alert and oriented to person, place, time, situation, responsive and appropriate with examiner. Grossly nonfocal. EXTREMITIES: His incision is clean. There is no strike through. He is neurovascularly intact in the right lower extremity. LABORATORY DATA: Hemoglobin and hematocrit are 11.7 and 36.8. IMPRESSION: An 89-year-old male, postop day 1 right total knee arthroplasty, doing well. PLAN: Continue current care. Recheck tomorrow, probable discharge at that time. Job ID: [id number]
[2019-09-07] MEDS: OPTIFLEX C PO SCH (15:52)
[2019-09-07] MEDS: Atorvastatin Calcium 20 MG TAB PO SCH (21:00)
--- NOTE | 2019-09-07 22:32 | PDOC.HOSPP ---
- Subjective Encounter Date: 09/07/19 Encounter Time: 13:00 Subjective: no overnight events. This afternoon, complaining of right knee pain that started during physical therapy session. Nurse about to administer pain medication. Otherwise no complaints - Objective Vital Signs & Weight: Vital Signs (12 hours) Temp Pulse Resp BP Pulse Ox 09/07/19 20:30 98.8 F 99 18 170/79 H 96 09/07/19 16:00 98.9 F 95 14 159/67 H 96 09/07/19 12:00 98.3 F 90 14 136/69 96 Weight Admit Weight 189 lb Weight 189 lb I&O: 09/06/19 09/07/19 09/08/19 06:59 06:59 06:59 Intake Total 1740 1920 Output Total 1250 150 Balance 490 1770 Result Diagrams: 09/07/19 05:29 Hospitalist ROS - Review of Systems Constitutional: denies: fever, chills, sweats, weakness, malaise, other Eyes: denies: pain, vision change, conjunctivae inflammation, eyelid inflammation, redness, other Respiratory: denies: cough, dry, shortness of breath, hemoptysis, SOB with excertion, pleuritic pain, sputum, wheezing, other Cardiovascular: denies: chest pain, palpitations, orthopnea, paroxysmal noc. dyspnea, edema, light headedness, other Gastrointestinal: denies: nausea, vomiting, abdominal pain, diarrhea, constipation, melena, hematochezia, other Genitourinary: denies: dysuria, frequency, incontinence, hematuria, retention, other Musculoskeletal: reports: other (right knee pain) - Medication Medications: Active Medications Generic Name Dose Route Start Last Admin Trade Name Freq PRN Reason Stop Dose Admin Hydrocodone Bitart/Acetaminophen 1 tab 09/06/19 07:29 09/07/19 16:53 [place] 10/325 PO 1 tab Q4H PRN Administration Pain (1-3) Hydrocodone Bitart/Acetaminophen 2 tab 09/06/19 07:29 09/07/19 20:58 [place] 10/325 PO 2 tab Q4H PRN Administration PAIN (4-6) Aspirin 81 mg 09/06/19 09:00 09/07/19 20:59 Ecotrin PO 81 mg BID BERTA Administration Atorvastatin Calcium 20 mg 09/06/19 21:00 09/07/19 21:00 Lipitor PO 20 mg HS BERTA Administration Calcium Carbonate 1,200 mg 09/06/19 09:00 09/07/19 08:58 Caltrate PO 1,200 mg DAILY BERTA Administration Calcium Polycarbophil 625 mg 09/06/19 09:00 09/07/19 08:59 Fibercon PO 625 mg DAILY BERTA Administration Cholecalciferol 2,000 units 09/06/19 09:00 09/07/19 08:56 Vitamin D3 PO 2,000 units DAILY BERTA Administration Coenzyme Q10 200 mg 09/06/19 09:00 09/07/19 21:00 Coenzyme Q10 PO 200 mg BID BERTA Administration Ferrous Gluconate 324 mg 09/07/19 09:00 09/07/19 21:00 Fergon PO 324 mg BID BERTA Administration Gabapentin 400 mg 09/06/19 09:00 09/07/19 20:59 Neurontin PO 400 mg BID BERTA Administration Sodium Chloride 1,000 mls @ 100 mls/hr 09/06/19 07:15 09/07/19 12:23 Normal Saline 0.9% IV Not Given .Q10H BERTA Ropivacaine 250 ml/ Device 250 mls @ 0 mls/hr 09/06/19 07:29 09/07/19 09:56 NERVE BLCK 09/08/19 07:30 250 mls INF BERTA Administration As Directed Iron/Minerals/Multivitamins 1 tab 09/07/19 09:00 09/07/19 08:58 Theragran M PO 1 tab DAILY BERTA Administration Multivitamins/Minerals 1 tab 09/06/19 09:00 09/07/19 21:00 Ocuvite With Lutein PO Not Given DAILY [facility] Multivitamins/Minerals 1 tab 09/06/19 09:00 09/07/19 21:02 Ocuvite With Lutein PO 1 tab BID BERTA Administration Senna/Docusate Sodium 2 tab 09/07/19 09:00 09/07/19 21:00 Senokot S PO 2 tab BID BERTA Administration Tamsulosin HCl 0.4 mg 09/06/19 09:00 09/07/19 21:00 Flomax PO 0.4 mg BID BERTA Administration Tramadol HCl 100 mg 09/06/19 07:06 09/06/19 23:18 Ultram PO 100 mg Q6H PRN Administration Moderate Pain (4-6) Zolpidem Tartrate 5 mg 09/06/19 07:06 09/06/19 23:24 Ambien PO 5 mg HSPRN PRN Administration Insomnia - Exam General Appearance: NAD, awake alert ENT: normocephalic atraumatic, no oropharyngeal lesions, moist mucosa Neck: supple, no JVD Heart: RRR, no murmur, no gallops, no rubs Respiratory: CTAB, no wheezes, no rales, no ronchi Gastrointestinal: soft, non-tender, non-distended, normal bowel sounds Extremities: no edema Extremities - other findings: right knee: bandage over knee, no surrounding erythema or rigidity Psychiatric: normal affect, normal behavior, A&O x 3 Hosp A/P - Plan 1. Osteoarthritis of the knee, POD 1 s/p R TKA. Pain after PT and before pain medication administration. Patient explained that if pain persists can ask for increase in dose. 2. Stage 2 hypertension, not currently on any antihypertensives - first indication in hypertensive - ACEI. Will start lisinopril, check AM BMP. May be exacerbated by pain, otherwise, will likely need 2 different antihypertensives. Goal <130/80 considering history of CVA. 3. Hyperlipidemia. Resume the patient's statin. 4. Gastroesophageal reflux disease. We will continue the patient's H2 antonieta. 5. Sinus allergies. We will continue the patient's Claritin. 6. Benign prostatic hyperplasia. We will continue the patient's Flomax. 7. Deep venous thrombosis prophylaxis as per Surgery. He is on sequential compression devices. CODE STATUS: The patient is a full code. Should he be incapacitated, his children, Abdifatah and Diane Lange will be his medical decision makers. Job ID:
[2019-09-07] MEDS ORDERED: Lisinopril 10 MG TAB PO SCH (23:00)
[2019-09-08] MEDS: traMADol HCl 50 MG TAB PO PRN ×2 (03:28→20:52)
[2019-09-08] MEDS: Acetaminophen 325 MG TAB PO PRN ×2 (03:28→23:27)
[2019-09-08 04:47] LABS: Anion Gap 11 mmol/L (10-20); BUN (Urea Nitrogen) 18 mg/dL (8.4-25.7); Calc. Creatinine Clearance 60 mL/min (70-130); Calcium 8.5 mg/dL (7.8-10.44); Carbon Dioxide 23 mmol/L (23-31); Chloride 102 mmol/L (98-107); Estimated GFR-MDRD 69; Glucose 142 mg/dL (83-110); Hemoglobin 12.1 g/dL (14.0-18.0); Magnesium 1.9 mg/dL (1.6-2.6); Mean Corpuscular HGB CONC 31.3 g/dL (32.0-36.0); Mean Corpuscular Hemoglobin 29.9 pg (27.0-31.0); Mean Corpuscular Volume 95.8 fL (78.0-98.0); Platelet Count 149 thou/uL (130-400); Potassium 4.2 mmol/L (3.5-5.1); RBC Distribution Width 21.1 % (11.5-14.5); Red Blood Cell (RBC) Count 4.05 mill/uL (4.70-6.10); Sodium 132 mmol/L (136-145); White Blood Cell (WBC) Count 11.8 thou/uL (4.8-10.8)
[2019-09-08 05:01] LABS: Bacteria/HPF None Seen HPF (None Seen); Bilirubin Negative (Negative); Blood, Urine Negative (Negative); Clarity Clear (Clear); Glucose, Urine (Dipstick) Normal (Negative); Leukocyte Negative Leu/uL (Negative); Nitrite Negative (Negative); Protein, Urine (Dipstick) 20 mg/dL (Neg-Trace); RBC/HPF 0-3 HPF (0-3); Squamous Epithelial None Seen HPF (0-3); Urobilinogen Normal mg/dL (Less than 2); WBC/HPF 0-3 HPF (0-3)
[2019-09-08 05:10] LABS: Urine Culture Reflex No No
[2019-09-08 05:15] LABS: #Eosinphils 0.1 thou/uL (0.0-0.7); #Lymphocytes 0.9 thou/uL (1.20-3.40); #Monocytes 1.2 thou/uL (0.11-0.59); #Neutrophils 9.6 thou/uL (1.40-6.50); %Basophils 0.2 % (0.0-1.0); %Eosinophils 0.5 % (0.0-10.0); %Lymphocytes 7.4 % (21.0-51.0); %Monocytes 10.5 % (0.0-10.0); %Neutrophils 81.5 % (42.0-75.0); Anisocytosis SLIGHT = 6-15 cells (100X) (0-5/hpf); MDiff Complete? YES; Platelet Morphology Comment Appears Adequate
[2019-09-08] MEDS ORDERED: Ketorolac Tromethamine 30 MG/ML VIAL IVP SCH (05:30)
--- NOTE | 2019-09-08 06:28 | RAD ---
CHEST 1 VIEW: Date: 09/08/2019 INDICATION: Fever and shortness of breath. COMPARISON: Prior exam dated 03/11/2019. FINDINGS: No consolidation is evident. No pleural effusion is demonstrated. No pneumothorax is seen. Osseous st ructures are unchanged. IMPRESSION: No acute cardiopulmonary abnormality. POS: BH
[2019-09-08] MEDS: Calcium Carbonate 600 MG TAB PO SCH (08:34)
[2019-09-08] MEDS: Ubidecarenone 50 MG CAP PO SCH ×2 (08:34→20:53)
[2019-09-08] MEDS: Multivitamin W/ Minerals 1 TAB PO SCH (08:34)
[2019-09-08] MEDS: Tamsulosin HCl 0.4 MG CAP PO SCH ×2 (08:35→20:54)
[2019-09-08] MEDS: Vit A,C & E/Lutein/Minerals Tablet PO SCH ×3 (08:35→20:54)
[2019-09-08] MEDS: Aspirin 81 mg Enteric Coated Tablet PO SCH ×2 (08:35→20:54)
[2019-09-08] MEDS: Gabapentin 400 MG CAP PO SCH ×2 (08:35→20:53)
[2019-09-08] MEDS: Lisinopril 10 MG TAB PO SCH (08:35)
[2019-09-08] MEDS: Ferrous Gluconate 324 MG TAB PO SCH ×2 (08:35→20:54)
[2019-09-08] MEDS: Senokot S 8.6-50 MG TAB PO SCH ×2 (08:36→20:54)
[2019-09-08] MEDS ORDERED: Ropivacaine HCl/PF 250 ML in Premix Bag 1 BAG NERVE BLCK SCH (11:00)
[2019-09-08] MEDS: Docusate 100 MG CAP PO PRN ×2 (11:59→20:53)
[2019-09-08] MEDS: Calcium Polycarbophil 625 MG TAB PO SCH (14:36)
[2019-09-08] MEDS: Sodium Chloride 0.9% 1,000 ML IV SCH ×2 (14:37→19:31)
[2019-09-08] MEDS: HYDROcodone/Acetaminophen 10/325 mg Tablet PO PRN (16:31)
--- NOTE | 2019-09-08 20:02 | PDOC.HOSPP ---
- Subjective Encounter Date: 09/08/19 Encounter Time: 13:00 Subjective: overnight, spiked a fever. This morning, daughter at bedside slightly agitated regarding changing food to low sodium food because it was that "just one time" that blood pressure was high though it has consistently been as inpatient. Explained and she agreed to continue diet. Patient has no complaints and denies fatigue, pleuritic pain, calf pain, cough, sputum production, dysuria, frequency , burning on urination, diarrhea - Objective Vital Signs & Weight: Vital Signs (12 hours) Temp Pulse Resp BP BP Pulse Ox 09/08/19 15:05 99.8 F H 99 14 151/72 H 98 09/08/19 08:35 163/80 H 09/08/19 08:00 96 Weight Admit Weight 189 lb Weight 189 lb I&O: 09/07/19 09/08/19 09/09/19 06:59 06:59 06:59 Intake Total 1740 2912 Output Total 1250 1125 Balance 490 1787 Result Diagrams: 09/08/19 04:09 09/08/19 04:09 Hospitalist ROS - Review of Systems Constitutional: reports: fever. denies: chills, sweats, weakness Respiratory: denies: cough, shortness of breath, pleuritic pain, sputum Gastrointestinal: denies: nausea, vomiting, abdominal pain, diarrhea Genitourinary: denies: dysuria, frequency - Medication Medications: Active Medications Generic Name Dose Route Start Last Admin Trade Name Freq PRN Reason Stop Dose Admin Acetaminophen 650 mg 09/06/19 07:29 09/08/19 03:28 Tylenol PO 650 mg Q6H PRN Administration FEVER/PAIN (1-3) Hydrocodone Bitart/Acetaminophen 1 tab 09/06/19 07:29 09/08/19 16:31 [place] 10/325 PO 1 tab Q4H PRN Administration Pain (1-3) Hydrocodone Bitart/Acetaminophen 2 tab 09/06/19 07:29 09/07/19 20:58 [place] 10/325 PO 2 tab Q4H PRN Administration PAIN (4-6) Aspirin 81 mg 09/06/19 09:00 09/08/19 08:35 Ecotrin PO 81 mg BID BERTA Administration Atorvastatin Calcium 20 mg 09/06/19 21:00 09/07/19 21:00 Lipitor PO 20 mg HS BERTA Administration Calcium Carbonate 1,200 mg 09/06/19 09:00 09/08/19 08:34 Caltrate PO 1,200 mg DAILY BERTA Administration Calcium Polycarbophil 625 mg 09/06/19 09:00 09/08/19 14:36 Fibercon PO Not Given DAILY [facility] Cholecalciferol 2,000 units 09/06/19 09:00 09/08/19 08:34 Vitamin D3 PO 2,000 units DAILY [facility] Administration Coenzyme Q10 200 mg 09/06/19 09:00 09/08/19 08:34 Coenzyme Q10 PO 200 mg BID [facility] Administration Docusate Sodium 100 mg 09/06/19 07:08 09/08/19 11:59 Colace PO 100 mg BIDPRN PRN Administration Constipation Famotidine 20 mg 09/06/19 09:00 09/08/19 10:13 Pepcid PO 20 mg DAILYPRN PRN Administration ACID REFLUX Ferrous Gluconate 324 mg 09/07/19 09:00 09/08/19 08:35 Fergon PO 324 mg BID [facility] Administration Gabapentin 400 mg 09/06/19 09:00 09/08/19 08:35 Neurontin PO 400 mg BID [facility] Administration Sodium Chloride 1,000 mls @ 100 mls/hr 09/06/19 07:15 09/08/19 19:31 Normal Saline 0.9% IV Not Given .Q10H [facility] Ropivacaine 250 ml/ Device 250 mls @ 10 mls/hr 09/08/19 11:00 09/08/19 11:49 NERVE BLCK 09/09/19 11:01 250 mls INF [facility] Administration Iron/Minerals/Multivitamins 1 tab 09/07/19 09:00 09/08/19 08:34 Theragran M PO 1 tab DAILY [facility] Administration Lisinopril 10 mg 09/08/19 09:00 09/08/19 08:35 Zestril PO 10 mg DAILY [facility] Administration Multivitamins/Minerals 1 tab 09/06/19 09:00 09/08/19 14:36 Ocuvite With Lutein PO Not Given BID [facility] Senna/Docusate Sodium 2 tab 09/07/19 09:00 09/08/19 08:36 Senokot S PO 2 tab BID [facility] Administration Tamsulosin HCl 0.4 mg 09/06/19 09:00 09/08/19 08:35 Flomax PO 0.4 mg BID BERTA Administration - Exam General Appearance: NAD, awake alert Neck: supple, symmetric, no JVD Heart: RRR, no murmur, no gallops, no rubs Respiratory: CTAB, no wheezes, no rales, no ronchi, normal chest expansion, no tachypnea Gastrointestinal: soft, non-tender, non-distended, normal bowel sounds Extremities: no edema Extremities - other findings: clean bandage over operative site Psychiatric: normal affect, normal behavior, A&O x 3 Hosp A/P - Plan - early postoperative fever developed POD2. No signs or symptoms suggestive of specific etiology. Most postop fevers up to second day resolve spontaneously and can be due to noninfectious etiology such as atelectasis, postsurgical inflammation, pneumonitis, etc. CXR unremarkable do not do additional workup at this point if spikes again, blood culture, UA, check surgical site, check for DVT if consistent signs, repeat CXR; meanwhile start zosyn #HTN -persistently HTN -started lisinopril and low sodium diet -consider avoiding NSAIDs for pain management -will continue to follow #hyponatremia -unknow if acute or chronic -may be opiate, NSAID, or postsurgical SIADH -patient tolerating diet; consider stopping IVF since may exacerbate hyponatremia in context of SIADH
[2019-09-08] MEDS: Atorvastatin Calcium 20 MG TAB PO SCH (20:54)
[2019-09-09 00:38] LABS: #Eosinphils 0.1 thou/uL (0.0-0.7); #Lymphocytes 1.2 thou/uL (1.20-3.40); #Neutrophils 7.5 thou/uL (1.40-6.50); %Basophils 0.3 % (0.0-1.0); %Lymphocytes 11.9 % (21.0-51.0); %Monocytes 9.9 % (0.0-10.0); %Neutrophils 76.9 % (42.0-75.0); Hemoglobin 11.1 g/dL (14.0-18.0); Mean Corpuscular HGB CONC 31.7 g/dL (32.0-36.0); Mean Corpuscular Hemoglobin 29.9 pg (27.0-31.0); Mean Corpuscular Volume 94.4 fL (78.0-98.0); Mean Platelet Volume 10.2 fL (7.4-10.4); Platelet Count 128 thou/uL (130-400); RBC Distribution Width 20.8 % (11.5-14.5); Red Blood Cell (RBC) Count 3.71 mill/uL (4.70-6.10); White Blood Cell (WBC) Count 9.8 thou/uL (4.8-10.8)
[2019-09-09 00:53] LABS: Lactic Acid 1.5 mmol/L (0.5-2.2)
[2019-09-09 00:56] LABS: Anion Gap 10 mmol/L (10-20); BUN (Urea Nitrogen) 22 mg/dL (8.4-25.7); Calc. Creatinine Clearance 54 mL/min (70-130); Calcium 8.6 mg/dL (7.8-10.44); Carbon Dioxide 28 mmol/L (23-31); Chloride 102 mmol/L (98-107); Estimated GFR-MDRD 62; Glucose 125 mg/dL (83-110); Potassium 4.7 mmol/L (3.5-5.1); Sodium 135 mmol/L (136-145)
[2019-09-09] MEDS: Sodium Chloride 0.9% 1,000 ML IV SCH ×2 (04:48→14:17)
[2019-09-09 05:50] LABS: #Eosinphils 0.1 thou/uL (0.0-0.7); #Lymphocytes 1.3 thou/uL (1.20-3.40); #Neutrophils 6.1 thou/uL (1.40-6.50); %Basophils 0.4 % (0.0-1.0); %Eosinophils 1.7 % (0.0-10.0); %Lymphocytes 15.4 % (21.0-51.0); %Monocytes 11.3 % (0.0-10.0); %Neutrophils 71.1 % (42.0-75.0); Hemoglobin 10.4 g/dL (14.0-18.0); Mean Corpuscular HGB CONC 30.6 g/dL (32.0-36.0); Mean Corpuscular Volume 94.6 fL (78.0-98.0); Mean Platelet Volume 10.9 fL (7.4-10.4); Platelet Count 136 thou/uL (130-400); Red Blood Cell (RBC) Count 3.61 mill/uL (4.70-6.10); White Blood Cell (WBC) Count 8.6 thou/uL (4.8-10.8)
[2019-09-09 06:02] LABS: Sodium 135 mmol/L (136-145)
[2019-09-09] MEDS: Acetaminophen 325 MG TAB PO PRN ×2 (06:44→20:38)
[2019-09-09] MEDS: traMADol HCl 50 MG TAB PO PRN ×2 (06:45→20:39)
--- NOTE | 2019-09-09 07:33 | ULT ---
PRELIMINARY REPORT/[facility]/EMERGENCY AFTER HOURS PROCEDURE: EXAM: US Duplex bilateral Lower Extremity Veins. CLINICAL HISTORY: recent Rt knee replacement, RLE pain/edema, immobility, R/O DVT TECHNIQUE: Real-time ultrasound scan of the veins of the bilateral lower extremity with color Doppler flow, spec tral waveform analysis and compression. COMPARISON: None provided. FINDINGS: DEEP VEINS: The common femoral, femoral, and popliteal veins are echolucent and compressible. These v essels demonstrate respiratory variation and augmentation. There is normal color Doppler flow through out. The visualized calf veins are also patent. SUPERFICIAL VEINS: The visualized greater saphenous vein is patent. SOFT TISSUES: No popliteal fossa cyst or other abnormalities. IMPRESSION: No deep venous thrombosis in the bilateral lower extremity. ELECTRONICALLY SIGNED BY: Isaiah Granados MD Sep 09, 2019 1:45:25 AM [employer] This report is intended for review by the ordering physician only, in accordance of law. If you recei ve this report in error, please call [facility] at [phone]. FINAL REPORT EMERGENCY AFTER HOURS BILATERAL LOWER EXTREMITY VENOUS ULTRASOUND: FINDINGS/IMPRESSION: I agree with the findings and impression given in the preliminary report per [facility] physici an. No evidence of deep venous thrombosis.
[2019-09-09] MEDS: Senokot S 8.6-50 MG TAB PO SCH ×2 (09:10→23:35)
[2019-09-09] MEDS: Aspirin 81 mg Enteric Coated Tablet PO SCH ×2 (09:10→20:38)
[2019-09-09] MEDS: Tamsulosin HCl 0.4 MG CAP PO SCH ×2 (09:12→20:38)
[2019-09-09] MEDS: Lisinopril 10 MG TAB PO SCH (09:12)
[2019-09-09] MEDS: Calcium Polycarbophil 625 MG TAB PO SCH (09:13)
[2019-09-09] MEDS: Vit A,C & E/Lutein/Minerals Tablet PO SCH ×2 (09:16→20:38)
[2019-09-09] MEDS: Gabapentin 400 MG CAP PO SCH ×2 (09:16→20:38)
[2019-09-09] MEDS: Ubidecarenone 50 MG CAP PO SCH ×2 (09:16→20:38)
[2019-09-09] MEDS: Multivitamin W/ Minerals 1 TAB PO SCH (09:16)
[2019-09-09] MEDS: Calcium Carbonate 600 MG TAB PO SCH (09:17)
[2019-09-09] MEDS: Ferrous Gluconate 324 MG TAB PO SCH ×2 (09:17→20:38)
--- NOTE | 2019-09-09 09:24 | RAD ---
RADIOGRAPH CHEST 1 VIEW: DATE: 09/09/2019 HISTORY: 89-year-old male with "heart failure " FINDINGS: The thoracic aorta is tortuous and ectatic. There is no evidence of airspace density, pulmonary edema , or pneumothorax. The lateral costophrenic angles are not effaced. Heart size is normal. IMPRESSION: 1) No acute cardiopulmonary findings. 2) ectasia of thoracic aorta.
[2019-09-09 14:51] LABS: Bacteria/HPF None Seen HPF (None Seen); Bilirubin Negative (Negative); Blood, Urine Negative (Negative); Clarity Clear (Clear); Glucose, Urine (Dipstick) Normal (Negative); Leukocyte Negative Leu/uL (Negative); Nitrite Negative (Negative); Protein, Urine (Dipstick) 10 mg/dL (Neg-Trace); RBC/HPF 0-3 HPF (0-3); Squamous Epithelial 0-3 HPF (0-3); Urobilinogen Normal mg/dL (Less than 2); WBC/HPF 0-3 HPF (0-3)
[2019-09-09 14:55] LABS: Urine Culture Reflex No No
[2019-09-09] MEDS: Atorvastatin Calcium 20 MG TAB PO SCH (20:38)
--- NOTE | 2019-09-09 21:59 | PDOC.HOSPP ---
- Subjective Encounter Date: 09/09/19 Encounter Time: 09:00 Subjective: this morning, slightly elevated temperature. Patient continues to feel well and has no complaints. Denies symptoms of pneumonia, UTI, wound infection. Family members at bedside extensively educated regarding noninfectious etiologies of early postoperative fever and the reason we are being patient with aggressive measures so far. - Objective Vital Signs & Weight: Vital Signs (12 hours) Temp Pulse Resp BP BP Pulse Ox 09/09/19 15:27 98.8 F 93 18 152/77 H 94 L 09/09/19 11:58 98.1 F 92 18 129/72 96 Weight Admit Weight 189 lb Weight 189 lb I&O: 09/08/19 09/09/19 09/10/19 06:59 06:59 06:59 Intake Total 2912 490 Output Total 1125 Balance 1787 490 Result Diagrams: 09/09/19 05:04 09/09/19 05:04 Radiology Reviewed by me: Yes (no acute cardiopulmonary findings) Hospitalist ROS - Review of Systems Constitutional: denies: chills, sweats, weakness, malaise, other ENT: denies: ear pain, ear discharge, nose pain, nose discharge, nose congestion , mouth pain, mouth swelling, throat pain, throat swelling, other Cardiovascular: denies: chest pain, palpitations, orthopnea, paroxysmal noc. dyspnea, edema, light headedness, other Gastrointestinal: denies: nausea, vomiting, abdominal pain, diarrhea, constipation, melena, hematochezia, other Genitourinary: denies: dysuria, frequency, incontinence, hematuria, retention, other Skin: denies: rash, lesions, lelia, bruising, other - Medication Medications: Active Medications Generic Name Dose Route Start Last Admin Trade Name Freq PRN Reason Stop Dose Admin Acetaminophen 650 mg 09/06/19 07:29 09/09/19 20:38 Tylenol PO 650 mg Q6H PRN Administration FEVER/PAIN (1-3) Hydrocodone Bitart/Acetaminophen 1 tab 09/06/19 07:29 09/08/19 16:31 [place] 10/325 PO 1 tab Q4H PRN Administration Pain (1-3) Hydrocodone Bitart/Acetaminophen 2 tab 09/06/19 07:29 09/07/19 20:58 [place] 10/325 PO 2 tab Q4H PRN Administration PAIN (4-6) Aspirin 81 mg 09/06/19 09:00 09/09/19 20:38 Ecotrin PO 81 mg BID BERTA Administration Atorvastatin Calcium 20 mg 09/06/19 21:00 09/09/19 20:38 Lipitor PO 20 mg HS BERTA Administration Calcium Carbonate 1,200 mg 09/06/19 09:00 09/09/19 09:17 Caltrate PO 1,200 mg DAILY BERTA Administration Calcium Polycarbophil 625 mg 09/06/19 09:00 09/09/19 09:13 Fibercon PO 625 mg DAILY BERTA Administration Cholecalciferol 2,000 units 09/06/19 09:00 09/09/19 09:16 Vitamin D3 PO 2,000 units DAILY BERTA Administration Coenzyme Q10 200 mg 09/06/19 09:00 09/09/19 20:38 Coenzyme Q10 PO 200 mg BID BERTA Administration Docusate Sodium 100 mg 09/06/19 07:08 09/08/19 20:53 Colace PO 100 mg BIDPRN PRN Administration Constipation Famotidine 20 mg 09/06/19 09:00 09/08/19 10:13 Pepcid PO 20 mg DAILYPRN PRN Administration ACID REFLUX Ferrous Gluconate 324 mg 09/07/19 09:00 09/09/19 20:38 Fergon PO 324 mg BID BERTA Administration Gabapentin 400 mg 09/06/19 09:00 09/09/19 20:38 Neurontin PO 400 mg BID BERTA Administration Sodium Chloride 1,000 mls @ 100 mls/hr 09/06/19 07:15 09/09/19 14:17 Normal Saline 0.9% IV Not Given .Q10H [facility] Iron/Minerals/Multivitamins 1 tab 09/07/19 09:00 09/09/19 09:16 Theragran M PO 1 tab DAILY BERTA Administration Lisinopril 10 mg 09/08/19 09:00 09/09/19 09:12 Zestril PO 10 mg DAILY BERTA Administration Multivitamins/Minerals 1 tab 09/06/19 09:00 09/09/19 20:38 Ocuvite With Lutein PO 1 tab BID BERTA Administration Senna/Docusate Sodium 2 tab 09/07/19 09:00 09/09/19 09:10 Senokot S PO 2 tab BID BERTA Administration Tamsulosin HCl 0.4 mg 09/06/19 09:00 09/09/19 20:38 Flomax PO 0.4 mg BID BERTA Administration Tramadol HCl 100 mg 09/06/19 07:29 09/09/19 20:39 Ultram PO 100 mg Q6H PRN Administration Moderate Pain 4-6 - Exam General Appearance: NAD, awake alert Neck: supple, symmetric, no JVD Heart: RRR, no murmur, no gallops, no rubs, normal peripheral pulses Respiratory: CTAB, no wheezes, no rales, no ronchi, normal chest expansion Gastrointestinal: soft, non-tender, non-distended, normal bowel sounds Extremities: 1+ LE edema Extremities - other findings: nonpitting, surrounding and distal to surgical wound Psychiatric: normal affect, normal behavior, A&O x 3 Hosp A/P - Plan - early postoperative fever developed POD2. No signs or symptoms suggestive of specific etiology. Most postop fevers up to second day resolve spontaneously and can be due to noninfectious etiology such as atelectasis, postsurgical inflammation, pneumonitis, etc. CXR unremarkable, UA -ve, duplex LE -ve do not do additional workup at this point; recommend to remove dressing and assess for superficial wound infection #HTN -persistently HTN -started lisinopril and low sodium diet -patient and family educated regarding goal BP based on different guidelines. Would be comfortable with BP <150/90 considering age; however, based on EMR has history of CVA in which case more aggressive control <130/80 -consider avoiding NSAIDs for pain management -will continue to follow #chronic asymptomatic hyponatremia (improving) -may be opiate, NSAID, or postsurgical SIADH -patient tolerating diet; consider stopping IVF since may exacerbate hyponatremia in context of SIADH
[2019-09-10] MEDS: Sodium Chloride 0.9% 1,000 ML IV SCH ×2 (03:37→11:11)
[2019-09-10] MEDS: traMADol HCl 50 MG TAB PO PRN ×2 (05:32→11:14)
[2019-09-10] MEDS: Calcium Polycarbophil 625 MG TAB PO SCH (08:33)
[2019-09-10] MEDS: Ubidecarenone 50 MG CAP PO SCH ×2 (08:34→19:47)
[2019-09-10] MEDS: Vit A,C & E/Lutein/Minerals Tablet PO SCH ×2 (08:34→19:47)
[2019-09-10] MEDS: Aspirin 81 mg Enteric Coated Tablet PO SCH ×2 (08:34→19:46)
[2019-09-10] MEDS: Tamsulosin HCl 0.4 MG CAP PO SCH ×2 (08:38→19:46)
[2019-09-10] MEDS: Gabapentin 400 MG CAP PO SCH ×2 (08:38→19:46)
[2019-09-10] MEDS: Multivitamin W/ Minerals 1 TAB PO SCH (08:38)
[2019-09-10] MEDS: Ferrous Gluconate 324 MG TAB PO SCH ×2 (08:39→19:46)
[2019-09-10] MEDS: Lisinopril 10 MG TAB PO SCH (08:39)
[2019-09-10] MEDS: Calcium Carbonate 600 MG TAB PO SCH (08:39)
[2019-09-10] MEDS: Senokot S 8.6-50 MG TAB PO SCH ×2 (08:40→19:46)
--- NOTE | 2019-09-10 14:28 | PDOC.HOSPP ---
- Subjective Encounter Date: 09/10/19 Encounter Time: 11:00 Subjective: no BM; pain controlled, BP little on the high side, will provide PRN. afebrile x 24hrs - Objective Vital Signs & Weight: Vital Signs (12 hours) Temp Pulse Resp BP BP BP Pulse Ox 09/10/19 12:00 99 F 97 16 155/72 H 99 09/10/19 08:39 135/69 09/10/19 07:19 98.5 F 90 16 135/65 95 09/10/19 05:31 100.1 F H 88 16 160/75 H 96 Weight Admit Weight 189 lb Weight 189 lb I&O: 09/09/19 09/10/19 09/11/19 06:59 06:59 07:59 Intake Total 490 510 Output Total 600 Balance 490 -90 Result Diagrams: 09/09/19 05:04 09/09/19 05:04 Hospitalist ROS - Medication Medications: Active Medications Generic Name Dose Route Start Last Admin Trade Name Freq PRN Reason Stop Dose Admin Acetaminophen 650 mg 09/06/19 07:29 09/09/19 20:38 Tylenol PO 650 mg Q6H PRN Administration FEVER/PAIN (1-3) Hydrocodone Bitart/Acetaminophen 1 tab 09/06/19 07:29 09/08/19 16:31 [place] 10/325 PO 1 tab Q4H PRN Administration Pain (1-3) Hydrocodone Bitart/Acetaminophen 2 tab 09/06/19 07:29 09/07/19 20:58 [place] 10/325 PO 2 tab Q4H PRN Administration PAIN (4-6) Aspirin 81 mg 09/06/19 09:00 09/10/19 08:34 Ecotrin PO 81 mg BID BERTA Administration Atorvastatin Calcium 20 mg 09/06/19 21:00 09/09/19 20:38 Lipitor PO 20 mg HS BERTA Administration Calcium Carbonate 1,200 mg 09/06/19 09:00 09/10/19 08:39 Caltrate PO 1,200 mg DAILY BERTA Administration Calcium Polycarbophil 625 mg 09/06/19 09:00 09/10/19 08:33 Fibercon PO 625 mg DAILY BERTA Administration Cholecalciferol 2,000 units 09/06/19 09:00 09/10/19 08:34 Vitamin D3 PO 2,000 units DAILY BERTA Administration Coenzyme Q10 200 mg 09/06/19 09:00 09/10/19 08:34 Coenzyme Q10 PO 200 mg BID BERTA Administration Docusate Sodium 100 mg 09/06/19 07:08 09/08/19 20:53 Colace PO 100 mg BIDPRN PRN Administration Constipation Famotidine 20 mg 09/06/19 09:00 09/08/19 10:13 Pepcid PO 20 mg DAILYPRN PRN Administration ACID REFLUX Ferrous Gluconate 324 mg 09/07/19 09:00 09/10/19 08:39 Fergon PO 324 mg BID BERTA Administration Gabapentin 400 mg 09/06/19 09:00 09/10/19 08:38 Neurontin PO 400 mg BID BERTA Administration Sodium Chloride 1,000 mls @ 100 mls/hr 09/06/19 07:15 09/10/19 11:11 Normal Saline 0.9% IV Not Given .Q10H BERTA Iron/Minerals/Multivitamins 1 tab 09/07/19 09:00 09/10/19 08:38 Theragran M PO 1 tab DAILY BERTA Administration Lisinopril 10 mg 09/08/19 09:00 09/10/19 08:39 Zestril PO 10 mg DAILY BERTA Administration Loratadine 10 mg 09/06/19 07:33 09/10/19 14:10 Claritin PO 10 mg DAILYPRN PRN Administration ALLERGY Multivitamins/Minerals 1 tab 09/06/19 09:00 09/10/19 08:34 Ocuvite With Lutein PO 1 tab BID BERTA Administration Senna/Docusate Sodium 2 tab 09/07/19 09:00 09/10/19 08:40 Senokot S PO Not Given BID BERTA Tamsulosin HCl 0.4 mg 09/06/19 09:00 09/10/19 08:38 Flomax PO 0.4 mg BID BERTA Administration Tramadol HCl 100 mg 09/06/19 07:29 09/10/19 11:14 Ultram PO 100 mg Q6H PRN Administration Moderate Pain 4-6 - Exam General Appearance: NAD, awake alert Eye: PERRL ENT: normocephalic atraumatic Neck: supple Heart: RRR Respiratory: CTAB Gastrointestinal: soft, non-tender, normal bowel sounds Hosp A/P - Plan Postoperative fever - developed POD2. No signs or symptoms suggestive of specific etiology. -prob d/t noninfectious etiology such as atelectasis, postsurgical inflammation , pneumonitis, etc. CXR unremarkable, UA -ve, duplex LE -ve -NO additional workup at this point; recommend to remove dressing and assess for superficial wound infection #HTN -persistently HTN -started lisinopril and low sodium diet -patient and family educated regarding goal BP based on different guidelines. -history of CVA in which case more aggressive control <130/80--PRN hydralazine #chronic asymptomatic hyponatremia (improving) -may be opiate, NSAID, or postsurgical SIADH -patient tolerating diet; -medically stable for rehab vs.. Home with PT.
[2019-09-10] MEDS: Atorvastatin Calcium 20 MG TAB PO SCH (19:46)
[2019-09-11] MEDS: Acetaminophen 325 MG TAB PO PRN ×2 (00:04→20:12)
[2019-09-11] MEDS: traMADol HCl 50 MG TAB PO PRN ×3 (00:05→20:12)
[2019-09-11] MEDS: Sodium Chloride 0.9% 1,000 ML IV SCH ×3 (06:05→19:15)
[2019-09-11] MEDS: Aspirin 81 mg Enteric Coated Tablet PO SCH ×2 (07:57→20:06)
[2019-09-11] MEDS: Ubidecarenone 50 MG CAP PO SCH ×2 (07:57→20:06)
[2019-09-11] MEDS: Tamsulosin HCl 0.4 MG CAP PO SCH ×2 (07:58→20:06)
[2019-09-11] MEDS: Calcium Carbonate 600 MG TAB PO SCH (07:58)
[2019-09-11] MEDS: Lisinopril 10 MG TAB PO SCH (07:58)
[2019-09-11] MEDS: Senokot S 8.6-50 MG TAB PO SCH ×2 (07:58→20:07)
[2019-09-11] MEDS: Multivitamin W/ Minerals 1 TAB PO SCH (07:58)
[2019-09-11] MEDS: Ferrous Gluconate 324 MG TAB PO SCH ×2 (07:59→20:06)
[2019-09-11] MEDS: Calcium Polycarbophil 625 MG TAB PO SCH (07:59)
[2019-09-11] MEDS: Vit A,C & E/Lutein/Minerals Tablet PO SCH ×2 (07:59→20:06)
[2019-09-11] MEDS: Gabapentin 400 MG CAP PO SCH ×2 (07:59→20:06)
[2019-09-11] MEDS ORDERED: Lisinopril 20 MG TAB PO SCH (15:13)
--- NOTE | 2019-09-11 15:14 | PDOC.HOSPP ---
- Subjective Encounter Date: 09/11/19 Encounter Time: 10:40 Subjective: pt having meals, comfortable, d/w justin nd son, waiting for rehab transfer in am. ; care d/w RN. BP acceptable. - Objective Vital Signs & Weight: Vital Signs (12 hours) Temp Pulse Resp BP BP BP Pulse Ox 09/11/19 11:05 99.5 F 88 16 126/63 95 09/11/19 07:58 152/72 H 09/11/19 07:15 99.7 F H 83 16 154/72 H 94 L 09/11/19 04:36 98.5 F 83 16 149/77 H 96 Weight Admit Weight 189 lb Weight 189 lb I&O: 09/10/19 09/11/19 09/12/19 05:59 06:59 06:59 Intake Total Output Total Balance Result Diagrams: 09/09/19 05:04 09/09/19 05:04 Hospitalist ROS - Medication Medications: Active Medications Generic Name Dose Route Start Last Admin Trade Name Freq PRN Reason Stop Dose Admin Acetaminophen 650 mg 09/06/19 07:29 09/11/19 00:04 Tylenol PO 650 mg Q6H PRN Administration FEVER/PAIN (1-3) Hydrocodone Bitart/Acetaminophen 1 tab 09/06/19 07:29 09/08/19 16:31 [place] 10/325 PO 1 tab Q4H PRN Administration Pain (1-3) Hydrocodone Bitart/Acetaminophen 2 tab 09/06/19 07:29 09/07/19 20:58 [place] 10/325 PO 2 tab Q4H PRN Administration PAIN (4-6) Aspirin 81 mg 09/06/19 09:00 09/11/19 07:57 Ecotrin PO 81 mg BID BERTA Administration Atorvastatin Calcium 20 mg 09/06/19 21:00 09/10/19 19:46 Lipitor PO 20 mg HS BERTA Administration Calcium Carbonate 1,200 mg 09/06/19 09:00 09/11/19 07:58 Caltrate PO 1,200 mg DAILY BERTA Administration Calcium Polycarbophil 625 mg 09/06/19 09:00 09/11/19 07:59 Fibercon PO 625 mg DAILY BERTA Administration Cholecalciferol 2,000 units 09/06/19 09:00 09/11/19 07:58 Vitamin D3 PO 2,000 units DAILY BERTA Administration Coenzyme Q10 200 mg 09/06/19 09:00 09/11/19 07:57 Coenzyme Q10 PO 200 mg BID BERTA Administration Docusate Sodium 100 mg 09/06/19 07:08 09/08/19 20:53 Colace PO 100 mg BIDPRN PRN Administration Constipation Famotidine 20 mg 09/06/19 09:00 09/08/19 10:13 Pepcid PO 20 mg DAILYPRN PRN Administration ACID REFLUX Ferrous Gluconate 324 mg 09/07/19 09:00 09/11/19 07:59 Fergon PO 324 mg BID BERTA Administration Gabapentin 400 mg 09/06/19 09:00 09/11/19 07:59 Neurontin PO 400 mg BID BERTA Administration Sodium Chloride 1,000 mls @ 100 mls/hr 09/06/19 07:15 09/11/19 06:05 Normal Saline 0.9% IV Not Given .Q10H BERTA Iron/Minerals/Multivitamins 1 tab 09/07/19 09:00 09/11/19 07:58 Theragran M PO 1 tab DAILY BERTA Administration Lisinopril 10 mg 09/08/19 09:00 09/11/19 07:58 Zestril PO 10 mg DAILY BERTA Administration Loratadine 10 mg 09/06/19 07:33 09/10/19 14:10 Claritin PO 10 mg DAILYPRN PRN Administration ALLERGY Multivitamins/Minerals 1 tab 09/06/19 09:00 09/11/19 07:59 Ocuvite With Lutein PO 1 tab BID BERTA Administration Senna/Docusate Sodium 2 tab 09/07/19 09:00 09/11/19 07:58 Senokot S PO 2 tab BID BERTA Administration Tamsulosin HCl 0.4 mg 09/06/19 09:00 09/11/19 07:58 Flomax PO 0.4 mg BID BERTA Administration Tramadol HCl 100 mg 09/06/19 07:29 09/11/19 08:01 Ultram PO 100 mg Q6H PRN Administration Moderate Pain 4-6 - Exam General Appearance: NAD, awake alert Eye: PERRL ENT: normocephalic atraumatic Neck: supple Heart: RRR Respiratory: CTAB, normal chest expansion Gastrointestinal: soft, normal bowel sounds Neurological: cranial nerve grossly intact, no focal deficits Hosp A/P - Plan Postoperative fever - developed POD2. No signs or symptoms suggestive of specific etiology. -prob d/t noninfectious etiology such as atelectasis, postsurgical inflammation , pneumonitis, etc. CXR unremarkable, UA -ve, duplex LE -ve -NO additional workup at this point; recommend to remove dressing and assess for superficial wound infection #HTN -started lisinopril and low sodium diet -patient and family educated regarding goal BP based on different guidelines. -history of CVA in which case more aggressive control <130/80--PRN hydralazine #chronic asymptomatic hyponatremia (improving) -may be opiate, NSAID, or postsurgical SIADH -patient tolerating diet; -medically stable for rehab transfer on Thursday -Ok to transfer with Lisinopril 20mg PO daily.
[2019-09-11] MEDS: Atorvastatin Calcium 20 MG TAB PO SCH (20:06)
[2019-09-12] MEDS: traMADol HCl 50 MG TAB PO PRN (02:45)
[2019-09-12] MEDS: Acetaminophen 325 MG TAB PO PRN (02:45)
[2019-09-12] MEDS: Sodium Chloride 0.9% 1,000 ML IV SCH ×2 (05:12→08:17)
[2019-09-12 07:47] VITALS: BP 124/67; TEMP 98.4
[2019-09-12] MEDS: Ubidecarenone 50 MG CAP PO SCH (09:11)
[2019-09-12] MEDS: Calcium Polycarbophil 625 MG TAB PO SCH (09:11)
[2019-09-12] MEDS: Vit A,C & E/Lutein/Minerals Tablet PO SCH (09:11)
[2019-09-12] MEDS: Gabapentin 400 MG CAP PO SCH (09:11)
[2019-09-12] MEDS: Calcium Carbonate 600 MG TAB PO SCH (09:12)
[2019-09-12] MEDS: Aspirin 81 mg Enteric Coated Tablet PO SCH (09:12)
[2019-09-12] MEDS: Tamsulosin HCl 0.4 MG CAP PO SCH (09:12)
[2019-09-12] MEDS: Ferrous Gluconate 324 MG TAB PO SCH (09:12)
[2019-09-12] MEDS: Multivitamin W/ Minerals 1 TAB PO SCH (09:13)
[2019-09-12] MEDS: Senokot S 8.6-50 MG TAB PO SCH (09:13)
--- NOTE | 2019-09-15 16:10 | DIS ---
DATE OF ADMISSION: 09/06/2019 DATE OF DISCHARGE: 09/12/2019 DISCHARGE DISPOSITION: To custodial facility. [facility] BRIEF CLINICAL HISTORY: Sean is an 89-year-old male, who was admitted to [facility], underwent the above elective procedure on date of admission without intra, mayra, or postoperative complication. He had some low-grade fevers postop day 3, therefore he was kept over the weekend for observation and a full workup, which yielded no reason for the fever. The patient's fever then subsided. He felt much better. At the time of discharge, he is afebrile. He is ambulatory without assistance in a full weightbearing fashion utilizing a rolling walker, tolerating regular diet, and voiding without difficulty. He has been excepted at [facility]. He will convalesce there postoperatively. DISCHARGE MEDICATIONS: Please see medication reconciliation form. We will be happy to see the patient on an as-needed basis between now and his next scheduled appointment. CONDITION ON DISCHARGE: Stable. PROGNOSIS: Good. Job ID: [id number]
== END 2019-09-12 11:51 | disposition home or self-care (01) | DRG 470 ==
LOC: SJJU 09-06 05:27
PROVIDERS: ADMIT Orthopaedic Surgery; ATTEND Orthopaedic Surgery
PROC: 0SRC0J9 Replacement of Right Knee Joint with Synthetic Substitute, Cemented, Open Approach (ICD-10-PCS; principal; 2019-09-06)
PROC: 8E0YXBZ Computer Assisted Procedure of Lower Extremity (ICD-10-PCS; 2019-09-06)
DX: M17.11 Unilateral primary osteoarthritis, right knee (principal); E87.1 Hypo-osmolality and hyponatremia; M21.061 Valgus deformity, not elsewhere classified, right knee; H35.30 Unspecified macular degeneration; H91.90 Unspecified hearing loss, unspecified ear; C44.91 Basal cell carcinoma of skin, unspecified; E78.5 Hyperlipidemia, unspecified; N40.0 Benign prostatic hyperplasia without lower urinary tract symptoms; E78.00 Pure hypercholesterolemia, unspecified; K21.9 Gastro-esophageal reflux disease without esophagitis; J30.2 Other seasonal allergic rhinitis; Z86.73 Personal history of transient ischemic attack (TIA), and cerebral infarction without residual deficits; R50.82 Postprocedural fever; Z87.891 Personal history of nicotine dependence
CPT/HCPCS: 36415; 71045; 80048; 81001; 83605; 83735; 84145; 85025; 85027; 87040; 87633; 93970; C1713; C1776; J0670; J0690; J1100; J1885; J2001; J2250; J2270; J2405; J2704; J2795; J3010; J3490